=== PATIENT | female | born 1975 | race Caucasian/White ===

== ENCOUNTER 2017-10-28 03:31 | Inpatient (IN) ==
[2017-10-28] MEDS ORDERED: CEFEPIME 2,000 MG in SODIUM CHLORIDE 0.9% 100 ML IV STA (04:52)
[2017-10-28] MEDS ORDERED: SODIUM CHLORIDE 0.9% 1,000 ML IV STA (04:54)
[2017-10-28] MEDS ORDERED: SODIUM CHLORIDE 0.9% 2,000 ML IV STA (04:54)
[2017-10-28] MEDS ORDERED: AZITHROMYCIN INJ 500 MG in SODIUM CHLORIDE 0.9% 250 ML IV STA (04:58)
[2017-10-28] MEDS ORDERED: VANCOMYCIN (NICU) 1,000 MG in SYRINGE 1 EACH IV SCH (05:00)
[2017-10-28 05:01] LABS: Basophils % 0.2 % (0.0-0.8); Hemoglobin 14.3 GM/DL (12.0-16.0); Immature Granulocytes % 0.5 %; Immature Granulocytes Absolute 0.03 #; Lymphocytes # 0.3 10*3/uL (1.4-4.0); Lymphocytes % 4.9 % (21.3-54.2); Mean Corpuscular HGB Conc 34.9 GM/DL (32-36); Mean Corpuscular Hemoglobin 32 PG (27-34); Mean Corpuscular Volume 91.7 FL (87-102); Mean Platelet Volume 9.9 FL (9.6-12.0); Monocytes # 0.1 10*3/uL (0.11-0.8); Monocytes % 1.8 % (1.7-12.7); Neutrophils # 5.6 10*3/uL (1.4-7.4); Neutrophils % 92.6 % (38.7-73.9); Platelet Count 124 T/CUMM (130-400); Red Blood Count 4.47 MC/CUMM (3.8-5.5); Red Cell Distribution Width 12.8 % (9.3-17.3); White Blood Count 6.1 T/CUMM (4-12)
[2017-10-28 05:03] LABS: VBG Base Excess -1.6 MEQ/L (0-4); VBG HCO3 23.1 MEQ/L (24-28); VBG Oxygen Saturation 99.6 %; VBG PCO2 34.2 MMHG (41-51); VBG PH 7.419
[2017-10-28 05:28] LABS: Bilirubin,Total 0.6 MG/DL (0.2-1.0); Calcium 7.8 MG/DL (8.5-10.1); Osmolality,Calculated 268.2 MOS/KG (273-304); Potassium 3.2 MMOL/L (3.5-5.1); Total Protein 6.3 G/DL (6.4-8.3)
[2017-10-28] MEDS ORDERED: PIPERACILLIN/TAZOBACTAM 3,375 MG in SODIUM CHLORIDE 0.9% 100 ML IV STA (05:36)
[2017-10-28] MEDS ORDERED: LEVOFLOXACIN INJ 750 MG in PREMIX 1 EACH IV STA (05:36)
[2017-10-28] MEDS ORDERED: HYDROmorphone 2 MG/1 ML VIAL IV STA (05:53)
[2017-10-28 06:31] LABS: Band Neutrophils 9 % (0-10); Lymphocytes 3 % (20-55); Segmented Neutrophils 87 % (50-85); Total Cells Counted 100
[2017-10-28 06:32] LABS: Hypochromasia 1+; Microcytosis 1+; Platelet Estimate Adequate; Tear Drop Cells Slight
[2017-10-28] MEDS ORDERED: SODIUM CHLORIDE 0.9% 100 ML IV ONE (06:50)
[2017-10-28] MEDS ORDERED: HYDROmorphone 2 MG/1 ML VIAL ONE (06:50)
[2017-10-28] MEDS ORDERED: LEVOFLOXACIN INJ 150 ML IV ONE (06:50)
[2017-10-28] MEDS ORDERED: PIPERACILLIN/TAZOBACTAM 3,375 MG VIAL IV ONE (06:50)
[2017-10-28 07:36] LABS: ABG Base Excess 0.4 MMOL/L (-2.5-2.5); ABG HCO3 24.6 MMOL/L (20-26); ABG Oxygen Saturation 90.5 % (95-100); ABG PCO2 36.5 MM HG (35-48); ABG PH 7.432 (7.35-7.45); ABG PO2 54.7 MM HG (80-95); ABG TCO2 21.1 MMOL/L (23-27)
[2017-10-28] MEDS ORDERED: ALBUTEROL/IPRATROPIUM 3 ML NEB RESP TX PRN (08:51)
[2017-10-28] MEDS ORDERED: PANTOPRAZOLE 40 MG VIAL IV SCH (08:51)
[2017-10-28] MEDS ORDERED: SODIUM CHLORIDE 0.9% 1,000 ML IV SCH (08:51)
[2017-10-28] MEDS ORDERED: SODIUM CHLORIDE 0.9% IV SCH (09:30)
[2017-10-28] MEDS ORDERED: VANCOMYCIN IV SCH (09:30)
[2017-10-28] MEDS: BUDESONIDE 0.5 MG/2 ML NEB RESP TX SCH ×2 (09:48→18:08)
[2017-10-28] MEDS: ALBUTEROL/IPRATROPIUM 3 ML NEB RESP TX SCH ×3 (09:48→18:09)
[2017-10-28] MEDS: DEXTROSE 5% NACL 0.9% 1,000 ML IV SCH ×2 (09:50→19:56)
[2017-10-28] MEDS: MORPHINE 2 MG/1 ML SYRINGE IV PRN (10:39)
[2017-10-28] MEDS: ENOXAPARIN 40 MG/0.4 ML SYRINGE SUBCUT SCH (10:39)
[2017-10-28] MEDS ORDERED: ACETAMINOPHEN 500 MG TABLET PO PRN (11:16)
[2017-10-28] MEDS ORDERED: NAPROXEN 500 MG TABLET PO PRN (11:17)
[2017-10-28] MEDS ORDERED: SUCCINYLCHOLINE 200 MG/10 ML VIAL ONE (11:48)
[2017-10-28] MEDS ORDERED: PROPOFOL 1,000 MG/100 ML BOTTLE IV ONE (11:49)
[2017-10-28] MEDS ORDERED: MIDAZOLAM 2 MG/2 ML VIAL ONE (12:13)
[2017-10-28] MEDS ORDERED: VECURONIUM 10 MG VIAL IV ONE (12:13)
[2017-10-28] MEDS: PROPOFOL 1,000 MG/100 ML BOTTLE IV SCH ×4 (12:15→22:02)
[2017-10-28] MEDS ORDERED: VECURONIUM 10 MG VIAL IV PRN (12:17)
[2017-10-28] MEDS ORDERED: MIDAZOLAM 2 MG/2 ML VIAL IV ONE (12:20)
[2017-10-28 12:44] LABS: ABG Base Excess -2.3 MMOL/L (-2.5-2.5); ABG HCO3 25.1 MMOL/L (20-26); ABG Oxygen Saturation 84.4 % (95-100); ABG PCO2 53.8 MM HG (35-48); ABG PH 7.287 (7.35-7.45); ABG PO2 47.8 MM HG (80-95); ABG TCO2 26.8 MMOL/L (23-27)
[2017-10-28] MEDS: MIDAZOLAM 100 MG in SODIUM CHLORIDE 0.9% 80 ML IV SCH (13:26)
[2017-10-28] MEDS: VANCOMYCIN INJ 1,500 MG in SODIUM CHLORIDE 0.9% 500 ML IV SCH (13:28)
[2017-10-28] MEDS ORDERED: ACETAMINOPHEN 650 MG SUPP RECTAL PRN (13:56)
[2017-10-28] MEDS: AZITHROMYCIN INJ 500 MG in SODIUM CHLORIDE 0.9% 250 ML IV SCH (15:30)
[2017-10-28 15:58] LABS: ABG Base Excess -1.9 MMOL/L (-2.5-2.5); ABG HCO3 22.9 MMOL/L (20-26); ABG Oxygen Saturation 93.5 % (95-100); ABG PCO2 39.3 MM HG (35-48); ABG PH 7.383 (7.35-7.45); ABG PO2 62.3 MM HG (80-95); ABG TCO2 24.1 MMOL/L (23-27)
[2017-10-28] MEDS: PIPERACILLIN/TAZOBACTAM 3,375 MG in SODIUM CHLORIDE 0.9% 100 ML IV SCH (17:02)
[2017-10-28 18:03] LABS: Apearance,Urine Slightly Hazy (Clear); Bilirubin,Urine Negative (Negative); Blood, Urine Large mg/dL (Negative); Glucose,Urine (UA) Negative (Negative); Ketones,Urine Negative (Negative); Nitrite,Urine Negative (Negative); Protein,Urine 100 MG/DL; RBC,Urine 12 /HPF (0-4); Squamous Epithelial Cell,Urine Occasional /HPF (0-10); Urine Color Yellow (Yellow); Urine Specific Gravity 1.032 (1.001-1.035); Urine Urobilinogen < 2.0 EU/DL (0.2-1.0); WBC,Urine 3 /HPF (0-6)
[2017-10-29] MEDS: VANCOMYCIN INJ 1,500 MG in SODIUM CHLORIDE 0.9% 500 ML IV SCH ×2 (00:16→11:52)
[2017-10-29] MEDS: PIPERACILLIN/TAZOBACTAM 3,375 MG in SODIUM CHLORIDE 0.9% 100 ML IV SCH ×3 (00:19→15:35)
[2017-10-29] MEDS: PROPOFOL 1,000 MG/100 ML BOTTLE IV SCH ×3 (00:42→11:53)
[2017-10-29] MEDS: ALBUTEROL/IPRATROPIUM 3 ML NEB RESP TX SCH ×4 (02:20→20:13)
[2017-10-29] MEDS ORDERED: fentaNYL 100 MCG/2 ML VIAL IV ONE ×3 (02:54→03:03)
[2017-10-29] MEDS ORDERED: fentaNYL 100 MCG/2 ML VIAL ONE (02:55)
[2017-10-29] MEDS ORDERED: SODIUM CHLORIDE 0.9% 500 ML IV ONE (02:57)
[2017-10-29] MEDS ORDERED: VECURONIUM 10 MG VIAL IV ONE ×2 (03:03→05:41)
[2017-10-29] MEDS ORDERED: IPRATROPIUM 500 MCG/2.5 ML NEB RESP TX ONE ×4 (03:12→05:42)
[2017-10-29] MEDS: PHENYLEPHRINE DRIP 40 MG/250 ML PREMIX IV SCH (03:22)
[2017-10-29] MEDS: fentaNYL INJ 1,250 MCG in SODIUM CHLORIDE 0.9% 225 ML IV SCH (03:34)
[2017-10-29 04:00] LABS: Allen Test Positive; Pt O2 Delivery Device Ventilator
[2017-10-29 04:01] LABS: ABG Base Excess -3.8 MMOL/L (-2.5-2.5); ABG Oxygen Saturation 87.8 % (95-100); ABG PCO2 50.3 MM HG (35-48); ABG PH 7.278 (7.35-7.45); ABG PO2 57.5 MM HG (80-95); ABG TCO2 21.1 MMOL/L (23-27)
[2017-10-29] MEDS: methylPREDNISolone SOD SUC 40 MG/1 ML VIAL IV SCH ×3 (05:00→20:52)
[2017-10-29] MEDS: DEXTROSE 5% NACL 0.9% 1,000 ML IV SCH ×2 (06:45→15:32)
[2017-10-29] MEDS: CISATRACURIUM 200 MG in SODIUM CHLORIDE 0.9% 100 ML IV SCH (06:46)
[2017-10-29 07:50] LABS: ABG Base Excess -5.4 MMOL/L (-2.5-2.5); ABG HCO3 19.9 MMOL/L (20-26); ABG Oxygen Saturation 91.5 % (95-100); ABG PCO2 47.9 MM HG (35-48); ABG PH 7.269 (7.35-7.45); ABG PO2 64.9 MM HG (80-95); ABG TCO2 19.5 MMOL/L (23-27); Pt O2 Delivery Device Ventilator
[2017-10-29] MEDS: BUDESONIDE 0.5 MG/2 ML NEB RESP TX SCH ×2 (08:09→20:13)
[2017-10-29 08:24] LABS: Calcium 6.9 MG/DL (8.5-10.1); Osmolality,Calculated 287.8 MOS/KG (273-304); Potassium 3.3 MMOL/L (3.5-5.1)
[2017-10-29] MEDS: PANTOPRAZOLE 40 MG VIAL IV SCH (08:51)
[2017-10-29] MEDS: ENOXAPARIN 40 MG/0.4 ML SYRINGE SUBCUT SCH (08:51)
[2017-10-29] MEDS ORDERED: PIPERACILLIN/TAZOBACTAM 3,375 MG in SODIUM CHLORIDE 0.9% 100 ML IV SCH (10:30)
[2017-10-29] MEDS: AZITHROMYCIN INJ 500 MG in SODIUM CHLORIDE 0.9% 250 ML IV SCH (13:32)
[2017-10-29] MEDS: POTASSIUM CHLORIDE RIDER 10 MEQ in PREMIX 1 EACH IV PRN ×2 (13:32→15:34)
[2017-10-29] MEDS: MIDAZOLAM 100 MG in SODIUM CHLORIDE 0.9% 80 ML IV SCH (14:28)
[2017-10-30] MEDS: PIPERACILLIN/TAZOBACTAM 3,375 MG in SODIUM CHLORIDE 0.9% 100 ML IV SCH ×2 (00:34→09:36)
[2017-10-30] MEDS: VANCOMYCIN INJ 1,500 MG in SODIUM CHLORIDE 0.9% 500 ML IV SCH ×3 (00:34→22:11)
[2017-10-30] MEDS: MIDAZOLAM 100 MG in SODIUM CHLORIDE 0.9% 80 ML IV SCH ×4 (01:01→22:16)
[2017-10-30] MEDS: ALBUTEROL/IPRATROPIUM 3 ML NEB RESP TX SCH ×4 (01:57→19:52)
[2017-10-30] MEDS: fentaNYL INJ 1,250 MCG in SODIUM CHLORIDE 0.9% 225 ML IV SCH ×3 (02:57→22:15)
[2017-10-30] MEDS: DEXTROSE 5% NACL 0.9% 1,000 ML IV SCH (03:10)
[2017-10-30] MEDS: PHENYLEPHRINE DRIP 40 MG/250 ML PREMIX IV SCH (04:01)
[2017-10-30 04:15] LABS: Allen Test Positive; Pt O2 Delivery Device Ventilator
[2017-10-30 04:19] LABS: ABG Base Excess -6.4 MMOL/L (-2.5-2.5); ABG HCO3 19.2 MMOL/L (20-26); ABG Oxygen Saturation 96.2 % (95-100); ABG PCO2 42.4 MM HG (35-48); ABG PH 7.284 (7.35-7.45); ABG PO2 80.6 MM HG (80-95); ABG TCO2 18.1 MMOL/L (23-27)
[2017-10-30] MEDS: methylPREDNISolone SOD SUC 40 MG/1 ML VIAL IV SCH ×3 (04:51→19:54)
[2017-10-30] MEDS: CISATRACURIUM 200 MG in SODIUM CHLORIDE 0.9% 100 ML IV SCH ×2 (06:25→11:40)
[2017-10-30] MEDS: POTASSIUM CHLORIDE RIDER 10 MEQ in PREMIX 1 EACH IV PRN ×5 (06:32→11:41)
[2017-10-30 06:33] LABS: Magnesium 2.3 MG/DL (1.8-2.4); Prealbumin 5.2 MG/DL (20-40)
[2017-10-30 07:13] LABS: HIV Antigen/Antibody Result Nonreactive (Nonreactive)
[2017-10-30 07:55] LABS: Basophils % 0.3 % (0.0-0.8); Hematocrit 36.3 VOL% (35.7-47.0); Hemoglobin 12.3 GM/DL (12.0-16.0); Immature Granulocytes % 0.9 %; Immature Granulocytes Absolute 0.03 #; Lymphocytes # 0.7 10*3/uL (1.4-4.0); Lymphocytes % 21.6 % (21.3-54.2); Mean Corpuscular HGB Conc 33.9 GM/DL (32-36); Mean Corpuscular Hemoglobin 32 PG (27-34); Mean Corpuscular Volume 93.8 FL (87-102); Mean Platelet Volume 10.7 FL (9.6-12.0); Monocytes # 0.1 10*3/uL (0.11-0.8); Monocytes % 2.8 % (1.7-12.7); Neutrophils # 2.4 10*3/uL (1.4-7.4); Neutrophils % 74.4 % (38.7-73.9); Platelet Count 115 T/CUMM (130-400); Red Blood Count 3.87 MC/CUMM (3.8-5.5); Red Cell Distribution Width 14.3 % (9.3-17.3); White Blood Count 3.2 T/CUMM (4-12)
[2017-10-30] MEDS: BUDESONIDE 0.5 MG/2 ML NEB RESP TX SCH ×2 (07:59→19:52)
[2017-10-30 08:49] LABS: Band Neutrophils 6 % (0-10); Hypochromasia 1+; Lymphocytes 14 % (20-55); Segmented Neutrophils 77 % (50-85); Total Cells Counted 100
[2017-10-30 08:50] LABS: Platelet Estimate Adequate
[2017-10-30] MEDS: ENOXAPARIN 40 MG/0.4 ML SYRINGE SUBCUT SCH (09:37)
[2017-10-30] MEDS: PANTOPRAZOLE 40 MG VIAL IV SCH (09:37)
[2017-10-30] MEDS: MEROPENEM 500 MG in SYRINGE 1 EACH IV SCH ×2 (11:47→19:55)
[2017-10-30] MEDS: PROPOFOL 1,000 MG/100 ML BOTTLE IV SCH (12:06)
[2017-10-30] MEDS: POTASSIUM CHLORIDE INJ 30 MEQ in DEXTROSE 5% NACL 0.45% 1,000 ML IV SCH ×2 (12:50→22:10)
[2017-10-30] MEDS: SODIUM PHOSPHATE INJ 15 MMOL in SODIUM CHLORIDE 0.9% 250 ML IV PRN (12:50)
[2017-10-30] MEDS: OSELTAMIVIR 6 MG/ML 60 ML/BOTTLE NG SCH ×2 (13:14→20:01)
[2017-10-30] MEDS: AZITHROMYCIN INJ 500 MG in SODIUM CHLORIDE 0.9% 250 ML IV SCH (14:28)
[2017-10-30] MEDS ORDERED: GLUCAGON 1 MG VIAL IM PRN (15:05)
[2017-10-30] MEDS ORDERED: DEXTROSE 50% 25 GM/50 ML VIAL IV PRN (15:05)
[2017-10-30 15:16] LABS: PT Patient Result 10.1 SECS; Partial Thromboplastin Time 36.1 SECS (0-40)
[2017-10-30 15:52] LABS: Folate 11.7 NG/ML (5.4-24.0); Vitamin B12 > 2000 PG/ML (211-911)
[2017-10-30] MEDS: INSULIN REGULAR 100 UNIT/ML SUBCUT SCH (17:09)
[2017-10-31] MEDS: INSULIN REGULAR 100 UNIT/ML SUBCUT SCH ×4 (00:24→18:22)
[2017-10-31] MEDS: ALBUTEROL/IPRATROPIUM 3 ML NEB RESP TX SCH ×5 (02:04→23:57)
[2017-10-31 03:19] LABS: Basophils % 0.2 % (0.0-0.8); Hematocrit 34.5 VOL% (35.7-47.0); Hemoglobin 11.4 GM/DL (12.0-16.0); Immature Granulocytes % 0.8 %; Immature Granulocytes Absolute 0.04 #; Lymphocytes # 0.8 10*3/uL (1.4-4.0); Lymphocytes % 17.2 % (21.3-54.2); Mean Corpuscular Hemoglobin 32 PG (27-34); Mean Corpuscular Volume 95.3 FL (87-102); Mean Platelet Volume 10.5 FL (9.6-12.0); Monocytes # 0.3 10*3/uL (0.11-0.8); Monocytes % 5.4 % (1.7-12.7); Neutrophils # 3.7 10*3/uL (1.4-7.4); Neutrophils % 76.4 % (38.7-73.9); Platelet Count 110 T/CUMM (130-400); Red Blood Count 3.62 MC/CUMM (3.8-5.5); Red Cell Distribution Width 14.7 % (9.3-17.3); White Blood Count 4.8 T/CUMM (4-12)
[2017-10-31 03:20] LABS: ABG Base Excess -3.7 MMOL/L (-2.5-2.5); ABG HCO3 21.8 MMOL/L (20-26); ABG Oxygen Saturation 95.1 % (95-100); ABG PH 7.343 (7.35-7.45); ABG PO2 71.1 MM HG (80-95)
[2017-10-31 03:45] LABS: Calcium 6.9 MG/DL (8.5-10.1); Osmolality,Calculated 302.9 MOS/KG (273-304); Potassium 3.4 MMOL/L (3.5-5.1)
[2017-10-31 03:52] LABS: Magnesium 2.2 MG/DL (1.8-2.4)
[2017-10-31 04:26] LABS: Band Neutrophils 4 % (0-10); Hypochromasia 2+; Lymphocytes 14 % (20-55); Metamyelocytes 1 %; Platelet Estimate Decreased; Segmented Neutrophils 78 % (50-85); Target Cells 2+; Total Cells Counted 100
[2017-10-31] MEDS: MEROPENEM 500 MG in SYRINGE 1 EACH IV SCH ×3 (04:59→21:47)
[2017-10-31] MEDS: methylPREDNISolone SOD SUC 40 MG/1 ML VIAL IV SCH ×3 (04:59→21:48)
[2017-10-31] MEDS: PHENYLEPHRINE DRIP 40 MG/250 ML PREMIX IV SCH (05:18)
[2017-10-31] MEDS: CISATRACURIUM 200 MG in SODIUM CHLORIDE 0.9% 100 ML IV SCH ×2 (06:55→23:01)
[2017-10-31] MEDS: BUDESONIDE 0.5 MG/2 ML NEB RESP TX SCH ×2 (07:50→19:21)
[2017-10-31] MEDS: POTASSIUM CHLORIDE INJ 30 MEQ in DEXTROSE 5% NACL 0.45% 1,000 ML IV SCH (08:40)
[2017-10-31] MEDS: PANTOPRAZOLE 40 MG VIAL IV SCH (08:40)
[2017-10-31] MEDS: ENOXAPARIN 40 MG/0.4 ML SYRINGE SUBCUT SCH (08:41)
[2017-10-31] MEDS: OSELTAMIVIR 6 MG/ML 60 ML/BOTTLE NG SCH ×2 (08:41→21:49)
[2017-10-31] MEDS: POTASSIUM CHLORIDE RIDER 10 MEQ in PREMIX 1 EACH IV PRN ×3 (09:01→11:14)
[2017-10-31] MEDS: SODIUM PHOSPHATE INJ 15 MMOL in SODIUM CHLORIDE 0.9% 250 ML IV PRN ×2 (09:02→16:33)
[2017-10-31] MEDS: PROPOFOL 1,000 MG/100 ML BOTTLE IV SCH (12:05)
[2017-10-31] MEDS: VANCOMYCIN INJ 1,500 MG in SODIUM CHLORIDE 0.9% 500 ML IV SCH (12:17)
[2017-10-31] MEDS: AZITHROMYCIN INJ 500 MG in SODIUM CHLORIDE 0.9% 250 ML IV SCH (13:54)
[2017-10-31] MEDS: MIDAZOLAM 100 MG in SODIUM CHLORIDE 0.9% 80 ML IV SCH ×2 (15:26→15:46)
[2017-10-31] MEDS: fentaNYL INJ 1,250 MCG in SODIUM CHLORIDE 0.9% 225 ML IV SCH (15:45)
[2017-10-31] MEDS: POTASSIUM CHLORIDE INJ 40 MEQ in DEXTROSE 5% NACL 0.22% 1,000 ML IV SCH (19:30)
[2017-10-31] MEDS ORDERED: hydrALAZINE 20 MG/1 ML VIAL IV ONE (20:53)
[2017-10-31] MEDS ORDERED: hydrALAZINE 20 MG/1 ML VIAL ONE (20:55)
[2017-10-31] MEDS: ZINC OXIDE PASTE 113 GM TUBE TOP SCH (21:49)
[2017-11-01] MEDS ORDERED: LABETALOL 20 MG/4 ML SYRINGE IV ONE (00:46)
[2017-11-01] MEDS: VANCOMYCIN INJ 1,500 MG in SODIUM CHLORIDE 0.9% 500 ML IV SCH ×3 (00:50→23:50)
[2017-11-01] MEDS: INSULIN REGULAR 100 UNIT/ML SUBCUT SCH ×4 (00:57→18:38)
[2017-11-01 03:27] LABS: Allen Test Positive; Pt O2 Delivery Device Ventilator
[2017-11-01 03:29] LABS: ABG Base Excess -3.5 MMOL/L (-2.5-2.5); ABG HCO3 21.5 MMOL/L (20-26); ABG Oxygen Saturation 95.6 % (95-100); ABG PCO2 49.7 MM HG (35-48); ABG PH 7.286 (7.35-7.45); ABG PO2 79.9 MM HG (80-95); ABG TCO2 21.4 MMOL/L (23-27)
[2017-11-01] MEDS: fentaNYL INJ 1,250 MCG in SODIUM CHLORIDE 0.9% 225 ML IV SCH ×3 (03:31→18:11)
[2017-11-01 04:23] LABS: Basophils % 0.1 % (0.0-0.8); Hematocrit 35.9 VOL% (35.7-47.0); Hemoglobin 11.5 GM/DL (12.0-16.0); Immature Granulocytes % 1.5 %; Immature Granulocytes Absolute 0.21 #; Lymphocytes # 0.6 10*3/uL (1.4-4.0); Lymphocytes % 4.5 % (21.3-54.2); Mean Corpuscular Hemoglobin 31 PG (27-34); Mean Corpuscular Volume 97.3 FL (87-102); Mean Platelet Volume 10.6 FL (9.6-12.0); Monocytes # 0.4 10*3/uL (0.11-0.8); Neutrophils # 12.8 10*3/uL (1.4-7.4); Neutrophils % 90.9 % (38.7-73.9); Platelet Count 105 T/CUMM (130-400); Red Blood Count 3.69 MC/CUMM (3.8-5.5); Red Cell Distribution Width 15.3 % (9.3-17.3); White Blood Count 14.1 T/CUMM (4-12)
[2017-11-01 04:58] LABS: Magnesium 2.5 MG/DL (1.8-2.4)
[2017-11-01 05:02] LABS: Calcium 7.1 MG/DL (8.5-10.1); Osmolality,Calculated 305.9 MOS/KG (273-304); Potassium 4.4 MMOL/L (3.5-5.1)
[2017-11-01 05:04] LABS: Lymphocytes 3 % (20-55); Nucleated Red Blood Cells 1 (0-5); Promyelocytes 1 %; Segmented Neutrophils 96 % (50-85); Total Cells Counted 100
[2017-11-01 05:06] LABS: Platelet Estimate Decreased
[2017-11-01 05:09] LABS: Hypochromasia Slight
[2017-11-01] MEDS: PHENYLEPHRINE DRIP 40 MG/250 ML PREMIX IV SCH (05:37)
[2017-11-01] MEDS: MEROPENEM 500 MG in SYRINGE 1 EACH IV SCH ×2 (06:05→12:10)
[2017-11-01] MEDS: methylPREDNISolone SOD SUC 40 MG/1 ML VIAL IV SCH ×3 (06:07→20:42)
[2017-11-01] MEDS: CISATRACURIUM 200 MG in SODIUM CHLORIDE 0.9% 100 ML IV SCH ×2 (06:26→22:38)
[2017-11-01] MEDS: POTASSIUM CHLORIDE INJ 40 MEQ in DEXTROSE 5% NACL 0.22% 1,000 ML IV SCH (08:08)
[2017-11-01] MEDS: BUDESONIDE 0.5 MG/2 ML NEB RESP TX SCH ×2 (08:42→20:23)
[2017-11-01] MEDS: ALBUTEROL/IPRATROPIUM 3 ML NEB RESP TX SCH ×3 (08:42→20:23)
[2017-11-01] MEDS: MIDAZOLAM 100 MG in SODIUM CHLORIDE 0.9% 80 ML IV SCH ×2 (08:43→19:56)
[2017-11-01] MEDS: OSELTAMIVIR 6 MG/ML 60 ML/BOTTLE NG SCH ×2 (09:43→20:45)
[2017-11-01] MEDS: PANTOPRAZOLE 40 MG VIAL IV SCH (09:43)
[2017-11-01] MEDS: ZINC OXIDE PASTE 113 GM TUBE TOP SCH ×2 (09:44→20:44)
[2017-11-01] MEDS: ENOXAPARIN 40 MG/0.4 ML SYRINGE SUBCUT SCH (11:38)
[2017-11-01] MEDS ORDERED: DEXTROSE 5% 1,000 ML IV SCH (12:30)
[2017-11-01] MEDS ORDERED: fentaNYL INJ 1,250 MCG in SODIUM CHLORIDE 0.9% 225 ML IV SCH (12:44)
[2017-11-01] MEDS: cloNIDine 0.2 MG/24 HR PATCH TRANSDERM SCH (12:54)
[2017-11-01] MEDS: PROPOFOL 1,000 MG/100 ML BOTTLE IV SCH (12:58)
[2017-11-01] MEDS: POTASSIUM PHOS/SOD PHOS POWDER 250 MG PACK NG SCH ×3 (14:52→20:43)
[2017-11-01] MEDS: AZITHROMYCIN INJ 500 MG in SODIUM CHLORIDE 0.9% 250 ML IV SCH (14:53)
[2017-11-01] MEDS: cefTRIAXone 2,000 MG in SYRINGE 1 EACH IV SCH (16:18)
[2017-11-01] MEDS: MORPHINE 2 MG/1 ML SYRINGE IV PRN (18:38)
[2017-11-02] MEDS: INSULIN REGULAR 100 UNIT/ML SUBCUT SCH ×4 (00:14→18:41)
[2017-11-02] MEDS: ALBUTEROL/IPRATROPIUM 3 ML NEB RESP TX SCH ×4 (01:04→21:20)
[2017-11-02] MEDS: fentaNYL INJ 1,250 MCG in SODIUM CHLORIDE 0.9% 225 ML IV SCH ×4 (02:16→23:01)
[2017-11-02] MEDS: PHENYLEPHRINE DRIP 40 MG/250 ML PREMIX IV SCH (02:46)
[2017-11-02 03:45] LABS: Allen Test Positive; Pt O2 Delivery Device Ventilator
[2017-11-02 03:46] LABS: ABG Base Excess 2.1 MMOL/L (-2.5-2.5); ABG HCO3 28.1 MMOL/L (20-26); ABG Oxygen Saturation 94.9 % (95-100); ABG PCO2 50.1 MM HG (35-48); ABG PH 7.367 (7.35-7.45); ABG PO2 72.3 MM HG (80-95); ABG TCO2 29.7 MMOL/L (23-27)
[2017-11-02] MEDS: methylPREDNISolone SOD SUC 40 MG/1 ML VIAL IV SCH ×3 (04:33→20:19)
[2017-11-02] MEDS: MIDAZOLAM 100 MG in SODIUM CHLORIDE 0.9% 80 ML IV SCH ×2 (04:44→14:03)
[2017-11-02 05:01] LABS: Basophils % 0.1 % (0.0-0.8); Hematocrit 31.7 VOL% (35.7-47.0); Hemoglobin 10.2 GM/DL (12.0-16.0); Immature Granulocytes % 1.7 %; Immature Granulocytes Absolute 0.18 #; Lymphocytes # 0.5 10*3/uL (1.4-4.0); Lymphocytes % 4.5 % (21.3-54.2); Mean Corpuscular HGB Conc 32.2 GM/DL (32-36); Mean Corpuscular Hemoglobin 31 PG (27-34); Mean Corpuscular Volume 97.5 FL (87-102); Mean Platelet Volume 11.7 FL (9.6-12.0); Monocytes # 0.4 10*3/uL (0.11-0.8); Neutrophils # 9.3 10*3/uL (1.4-7.4); Neutrophils % 89.7 % (38.7-73.9); Platelet Count 80 T/CUMM (130-400); Red Blood Count 3.25 MC/CUMM (3.8-5.5); Red Cell Distribution Width 15.4 % (9.3-17.3); White Blood Count 10.4 T/CUMM (4-12)
[2017-11-02] MEDS: CISATRACURIUM 200 MG in SODIUM CHLORIDE 0.9% 100 ML IV SCH ×2 (05:09→15:28)
[2017-11-02 05:15] LABS: INR 1.3; PT Patient Result 13.1 SECS; Partial Thromboplastin Time 30.6 SECS (0-40)
[2017-11-02 05:25] LABS: Calcium 7.2 MG/DL (8.5-10.1); Osmolality,Calculated 301.1 MOS/KG (273-304); Potassium 4.1 MMOL/L (3.5-5.1); Segmented Neutrophils 80 % (50-85); Total Cells Counted 100
[2017-11-02 05:26] LABS: Band Neutrophils 18 % (0-10); Lymphocytes 1 % (20-55)
[2017-11-02 05:29] LABS: Magnesium 2.6 MG/DL (1.8-2.4); Prealbumin 17.3 MG/DL (20-40)
[2017-11-02] MEDS ORDERED: FUROSEMIDE 40 MG/4 ML VIAL IV ONE ×2 (05:59→06:02)
[2017-11-02] MEDS ORDERED: FUROSEMIDE 100 MG/10 ML VIAL ONE (06:03)
[2017-11-02 06:42] LABS: ABG Base Excess 2.9 MMOL/L (-2.5-2.5); ABG HCO3 26.8 MMOL/L (20-26); ABG Oxygen Saturation 88.7 % (95-100); ABG PCO2 53.8 MM HG (35-48); ABG PH 7.351 (7.35-7.45); ABG PO2 55.6 MM HG (80-95); ABG TCO2 26.5 MMOL/L (23-27)
[2017-11-02] MEDS ORDERED: LIDOCAINE 1% 20 ML VIAL MISC INJ ONE (08:45)
[2017-11-02] MEDS: BUDESONIDE 0.5 MG/2 ML NEB RESP TX SCH ×2 (08:45→21:20)
[2017-11-02 10:57] LABS: Ammonia 44 UMOL/L (11-32)
[2017-11-02 11:20] LABS: Alanine Aminotransferase 39 U/L (13-56); Albumin 2.1 G/DL (3.4-5.0); Alkaline Phosphatase 136 U/L (45-117); Aspartate Amino Transferase 29 U/L (0-37); Bilirubin,Indirect 0.2 MG/DL (0.0-1.0); Bilirubin,Total < 0.39 MG/DL (0.2-1.0); Total Protein 5.2 G/DL (6.4-8.3)
[2017-11-02] MEDS: PANTOPRAZOLE 40 MG VIAL IV SCH (11:36)
[2017-11-02] MEDS: ENOXAPARIN 40 MG/0.4 ML SYRINGE SUBCUT SCH (11:36)
[2017-11-02] MEDS: POTASSIUM PHOS/SOD PHOS POWDER 250 MG PACK NG SCH ×3 (11:37→20:19)
[2017-11-02] MEDS: ZINC OXIDE PASTE 113 GM TUBE TOP SCH ×2 (11:37→20:19)
[2017-11-02] MEDS: VANCOMYCIN INJ 1,500 MG in SODIUM CHLORIDE 0.9% 500 ML IV SCH (11:37)
[2017-11-02] MEDS: OSELTAMIVIR 6 MG/ML 60 ML/BOTTLE NG SCH ×2 (11:38→20:19)
[2017-11-02] MEDS: PROPOFOL 1,000 MG/100 ML BOTTLE IV SCH (13:08)
[2017-11-02] MEDS: cefTRIAXone 2,000 MG in SYRINGE 1 EACH IV SCH (14:01)
[2017-11-02] MEDS: AZITHROMYCIN INJ 500 MG in SODIUM CHLORIDE 0.9% 250 ML IV SCH (14:01)
[2017-11-03] MEDS: INSULIN REGULAR 100 UNIT/ML SUBCUT SCH ×4 (00:32→17:50)
[2017-11-03] MEDS: MIDAZOLAM 100 MG in SODIUM CHLORIDE 0.9% 80 ML IV SCH ×4 (01:16→20:46)
[2017-11-03] MEDS: ALBUTEROL/IPRATROPIUM 3 ML NEB RESP TX SCH ×4 (01:24→18:39)
[2017-11-03] MEDS: PHENYLEPHRINE DRIP 40 MG/250 ML PREMIX IV SCH (02:48)
[2017-11-03 03:29] LABS: ABG HCO3 29.9 MMOL/L (20-26); ABG PCO2 49.4 MM HG (35-48); ABG PH 7.414 (7.35-7.45); ABG TCO2 28.6 MMOL/L (23-27); Allen Test Positive; Pt O2 Delivery Device Ventilator
[2017-11-03] MEDS: methylPREDNISolone SOD SUC 40 MG/1 ML VIAL IV SCH ×3 (03:39→20:45)
[2017-11-03 03:54] LABS: Basophils % 0.1 % (0.0-0.8); Hematocrit 30.4 VOL% (35.7-47.0); Hemoglobin 9.8 GM/DL (12.0-16.0); Immature Granulocytes % 1.2 %; Immature Granulocytes Absolute 0.12 #; Lymphocytes # 0.3 10*3/uL (1.4-4.0); Lymphocytes % 3.1 % (21.3-54.2); Mean Corpuscular HGB Conc 32.2 GM/DL (32-36); Mean Corpuscular Hemoglobin 32 PG (27-34); Mean Corpuscular Volume 97.7 FL (87-102); Mean Platelet Volume 11.6 FL (9.6-12.0); Monocytes # 0.4 10*3/uL (0.11-0.8); Neutrophils # 9.5 10*3/uL (1.4-7.4); Neutrophils % 91.6 % (38.7-73.9); Platelet Count 101 T/CUMM (130-400); Red Blood Count 3.11 MC/CUMM (3.8-5.5); Red Cell Distribution Width 14.9 % (9.3-17.3); White Blood Count 10.4 T/CUMM (4-12)
[2017-11-03 04:30] LABS: Magnesium 2.6 MG/DL (1.8-2.4)
[2017-11-03 05:11] LABS: Band Neutrophils 1 % (0-10); Lymphocytes 1 % (20-55); Platelet Estimate Decreased; Segmented Neutrophils 96 % (50-85); Total Cells Counted 100
[2017-11-03 05:12] LABS: Giant Platelets Few; Hypochromasia 1+; Ovalocytes Slight
[2017-11-03] MEDS: fentaNYL INJ 1,250 MCG in SODIUM CHLORIDE 0.9% 225 ML IV SCH ×4 (05:29→19:25)
[2017-11-03] MEDS: CISATRACURIUM 200 MG in SODIUM CHLORIDE 0.9% 100 ML IV SCH ×3 (06:15→23:07)
[2017-11-03] MEDS: BUDESONIDE 0.5 MG/2 ML NEB RESP TX SCH ×2 (07:24→18:39)
[2017-11-03] MEDS: ENOXAPARIN 40 MG/0.4 ML SYRINGE SUBCUT SCH (09:20)
[2017-11-03] MEDS: PANTOPRAZOLE 40 MG VIAL IV SCH (09:20)
[2017-11-03] MEDS: OSELTAMIVIR 6 MG/ML 60 ML/BOTTLE NG SCH ×2 (09:21→20:46)
[2017-11-03] MEDS: ZINC OXIDE PASTE 113 GM TUBE TOP SCH ×2 (09:21→20:45)
[2017-11-03] MEDS: POTASSIUM PHOS/SOD PHOS POWDER 250 MG PACK NG SCH ×3 (09:34→20:45)
[2017-11-03] MEDS: PROPOFOL 1,000 MG/100 ML BOTTLE IV SCH (12:06)
[2017-11-03] MEDS: cefTRIAXone 2,000 MG in SYRINGE 1 EACH IV SCH (14:44)
[2017-11-03] MEDS: AZITHROMYCIN INJ 500 MG in SODIUM CHLORIDE 0.9% 250 ML IV SCH (14:45)
[2017-11-03] MEDS: LABETALOL 100 MG/20 ML VIAL IV PRN (20:00)
[2017-11-03] MEDS ORDERED: OSELTAMIVIR 75 MG CAPSULE PO ONE (20:34)
[2017-11-04] MEDS ORDERED: fentaNYL INJ 2,500 MCG in SODIUM CHLORIDE 0.9% 500 ML IV SCH
[2017-11-04] MEDS: INSULIN REGULAR 100 UNIT/ML SUBCUT SCH ×4 (00:09→17:28)
[2017-11-04] MEDS: ALBUTEROL/IPRATROPIUM 3 ML NEB RESP TX SCH ×4 (01:16→19:44)
[2017-11-04 02:49] LABS: ABG Base Excess 7.8 MMOL/L (-2.5-2.5); ABG HCO3 33.9 MMOL/L (20-26); ABG Oxygen Saturation 97.8 % (95-100); ABG PCO2 55.8 MM HG (35-48); ABG PH 7.401 (7.35-7.45); ABG PO2 119.8 MM HG (80-95); ABG TCO2 35.6 MMOL/L (23-27); Pt O2 Delivery Device Ventilator
[2017-11-04] MEDS: PHENYLEPHRINE DRIP 40 MG/250 ML PREMIX IV SCH (03:47)
[2017-11-04] MEDS: methylPREDNISolone SOD SUC 40 MG/1 ML VIAL IV SCH ×3 (05:20→21:16)
[2017-11-04 05:49] LABS: Basophils % 0.2 % (0.0-0.8); Hematocrit 30.7 VOL% (35.7-47.0); Hemoglobin 9.7 GM/DL (12.0-16.0); Lymphocytes # 0.3 10*3/uL (1.4-4.0); Lymphocytes % 2.8 % (21.3-54.2); Mean Corpuscular HGB Conc 31.6 GM/DL (32-36); Mean Corpuscular Hemoglobin 32 PG (27-34); Mean Corpuscular Volume 100.3 FL (87-102); Mean Platelet Volume 11.4 FL (9.6-12.0); Monocytes # 0.4 10*3/uL (0.11-0.8); Monocytes % 4.1 % (1.7-12.7); Neutrophils # 9.1 10*3/uL (1.4-7.4); Neutrophils % 91.9 % (38.7-73.9); Platelet Count 117 T/CUMM (130-400); Red Blood Count 3.06 MC/CUMM (3.8-5.5); Red Cell Distribution Width 14.6 % (9.3-17.3)
[2017-11-04 06:29] LABS: Magnesium 2.7 MG/DL (1.8-2.4)
[2017-11-04 06:32] LABS: Band Neutrophils 7 % (0-10); Hypochromasia 1+; Platelet Estimate Decreased; Polychromasia Slight; Segmented Neutrophils 91 % (50-85); Total Cells Counted 100
[2017-11-04] MEDS: fentaNYL INJ 2,500 MCG in SODIUM CHLORIDE 0.9% 450 ML IV SCH ×2 (07:15→18:11)
[2017-11-04] MEDS: BUDESONIDE 0.5 MG/2 ML NEB RESP TX SCH ×2 (07:38→19:44)
[2017-11-04] MEDS ORDERED: FUROSEMIDE 40 MG/4 ML VIAL IV ONE (07:42)
[2017-11-04] MEDS: CISATRACURIUM 200 MG in SODIUM CHLORIDE 0.9% 100 ML IV SCH ×2 (08:43→09:48)
[2017-11-04] MEDS: POTASSIUM PHOS/SOD PHOS POWDER 250 MG PACK NG SCH ×3 (08:44→21:19)
[2017-11-04] MEDS: PANTOPRAZOLE 40 MG VIAL IV SCH (08:44)
[2017-11-04] MEDS: ZINC OXIDE PASTE 113 GM TUBE TOP SCH ×2 (08:44→21:16)
[2017-11-04] MEDS: ENOXAPARIN 40 MG/0.4 ML SYRINGE SUBCUT SCH (08:44)
[2017-11-04] MEDS: PROPOFOL 1,000 MG/100 ML BOTTLE IV SCH (12:10)
[2017-11-04] MEDS: MIDAZOLAM 100 MG in SODIUM CHLORIDE 0.9% 80 ML IV SCH ×2 (12:44→18:11)
[2017-11-04] MEDS: cefTRIAXone 2,000 MG in SYRINGE 1 EACH IV SCH (13:53)
[2017-11-04] MEDS: AZITHROMYCIN INJ 500 MG in SODIUM CHLORIDE 0.9% 250 ML IV SCH (13:54)
[2017-11-05] MEDS: INSULIN REGULAR 100 UNIT/ML SUBCUT SCH ×4 (00:05→17:16)
[2017-11-05] MEDS: ALBUTEROL/IPRATROPIUM 3 ML NEB RESP TX SCH ×4 (00:17→20:16)
[2017-11-05] MEDS: MIDAZOLAM 100 MG in SODIUM CHLORIDE 0.9% 80 ML IV SCH ×3 (02:08→21:41)
[2017-11-05] MEDS: PHENYLEPHRINE DRIP 40 MG/250 ML PREMIX IV SCH (03:12)
[2017-11-05] MEDS: fentaNYL INJ 2,500 MCG in SODIUM CHLORIDE 0.9% 450 ML IV SCH ×4 (03:12→21:42)
[2017-11-05] MEDS: methylPREDNISolone SOD SUC 40 MG/1 ML VIAL IV SCH ×3 (03:59→20:14)
[2017-11-05 04:09] LABS: Calcium 7.9 MG/DL (8.5-10.1); Osmolality,Calculated 306.1 MOS/KG (273-304); Potassium 4.5 MMOL/L (3.5-5.1)
[2017-11-05] MEDS: CISATRACURIUM 200 MG in SODIUM CHLORIDE 0.9% 100 ML IV SCH ×3 (04:38→18:24)
[2017-11-05 04:49] LABS: ABG Base Excess 7.1 MMOL/L (-2.5-2.5); ABG PCO2 51.9 MM HG (35-48); ABG PH 7.412 (7.35-7.45); Allen Test Positive; Pt O2 Delivery Device Ventilator
[2017-11-05] MEDS: LABETALOL 100 MG/20 ML VIAL IV PRN (06:02)
[2017-11-05] MEDS: BUDESONIDE 0.5 MG/2 ML NEB RESP TX SCH ×2 (08:05→20:16)
[2017-11-05] MEDS ORDERED: FUROSEMIDE 40 MG/4 ML VIAL IV ONE (08:20)
[2017-11-05] MEDS: ENOXAPARIN 40 MG/0.4 ML SYRINGE SUBCUT SCH (08:49)
[2017-11-05] MEDS: PANTOPRAZOLE 40 MG VIAL IV SCH (08:49)
[2017-11-05] MEDS: POTASSIUM PHOS/SOD PHOS POWDER 250 MG PACK NG SCH ×3 (08:50→20:14)
[2017-11-05] MEDS: ZINC OXIDE PASTE 113 GM TUBE TOP SCH ×2 (08:50→20:14)
[2017-11-05] MEDS: PROPOFOL 1,000 MG/100 ML BOTTLE IV SCH (11:33)
[2017-11-05] MEDS: AZITHROMYCIN INJ 500 MG in SODIUM CHLORIDE 0.9% 250 ML IV SCH (13:48)
[2017-11-05] MEDS: cefTRIAXone 2,000 MG in SYRINGE 1 EACH IV SCH (13:48)
[2017-11-06] MEDS: INSULIN REGULAR 100 UNIT/ML SUBCUT SCH ×4 (00:49→19:24)
[2017-11-06] MEDS: MIDAZOLAM 100 MG in SODIUM CHLORIDE 0.9% 80 ML IV SCH ×3 (03:03→18:50)
[2017-11-06] MEDS: ALBUTEROL/IPRATROPIUM 3 ML NEB RESP TX SCH ×4 (04:10→21:07)
[2017-11-06] MEDS: PHENYLEPHRINE DRIP 40 MG/250 ML PREMIX IV SCH (04:31)
[2017-11-06] MEDS: methylPREDNISolone SOD SUC 40 MG/1 ML VIAL IV SCH ×3 (04:31→20:30)
[2017-11-06 04:45] LABS: ABG Base Excess 8.7 MMOL/L (-2.5-2.5); ABG HCO3 32.5 MMOL/L (20-26); ABG Oxygen Saturation 97.8 % (95-100); ABG PCO2 53.4 MM HG (35-48); ABG PH 7.422 (7.35-7.45); ABG TCO2 31.4 MMOL/L (23-27); Allen Test Positive; Pt O2 Delivery Device Ventilator
[2017-11-06 04:58] LABS: Basophils % 0.2 % (0.0-0.8); Hematocrit 31.3 VOL% (35.7-47.0); Hemoglobin 9.7 GM/DL (12.0-16.0); Immature Granulocytes Absolute 0.28 #; Lymphocytes # 0.4 10*3/uL (1.4-4.0); Lymphocytes % 3.2 % (21.3-54.2); Mean Corpuscular Hemoglobin 31 PG (27-34); Mean Corpuscular Volume 100.6 FL (87-102); Monocytes # 0.7 10*3/uL (0.11-0.8); Monocytes % 5.1 % (1.7-12.7); Neutrophils # 12.4 10*3/uL (1.4-7.4); Neutrophils % 89.5 % (38.7-73.9); Platelet Count 158 T/CUMM (130-400); Red Blood Count 3.11 MC/CUMM (3.8-5.5); Red Cell Distribution Width 13.9 % (9.3-17.3); White Blood Count 13.9 T/CUMM (4-12)
[2017-11-06 05:10] LABS: INR 1.1; Partial Thromboplastin Time 24.3 SECS (0-40)
[2017-11-06 05:17] LABS: Band Neutrophils 2 % (0-10); Lymphocytes 4 % (20-55); Platelet Estimate Normal; Segmented Neutrophils 88 % (50-85); Total Cells Counted 100
[2017-11-06 05:20] LABS: Calcium 7.9 MG/DL (8.5-10.1); Osmolality,Calculated 303.1 MOS/KG (273-304); Potassium 4.9 MMOL/L (3.5-5.1)
[2017-11-06] MEDS: fentaNYL INJ 2,500 MCG in SODIUM CHLORIDE 0.9% 450 ML IV SCH ×3 (05:30→22:26)
[2017-11-06] MEDS: CISATRACURIUM 200 MG in SODIUM CHLORIDE 0.9% 100 ML IV SCH ×2 (06:20→09:02)
[2017-11-06] MEDS: BUDESONIDE 0.5 MG/2 ML NEB RESP TX SCH ×2 (07:47→21:07)
[2017-11-06] MEDS: ENOXAPARIN 40 MG/0.4 ML SYRINGE SUBCUT SCH (10:05)
[2017-11-06] MEDS: ZINC OXIDE PASTE 113 GM TUBE TOP SCH ×2 (10:05→21:57)
[2017-11-06] MEDS: POTASSIUM PHOS/SOD PHOS POWDER 250 MG PACK NG SCH ×3 (10:06→21:56)
[2017-11-06] MEDS: PANTOPRAZOLE 40 MG VIAL IV SCH (10:06)
[2017-11-06] MEDS: PROPOFOL 1,000 MG/100 ML BOTTLE IV SCH (15:35)
[2017-11-06] MEDS: cefTRIAXone 2,000 MG in SYRINGE 1 EACH IV SCH (15:42)
[2017-11-06] MEDS: AZITHROMYCIN INJ 500 MG in SODIUM CHLORIDE 0.9% 250 ML IV SCH (15:43)
[2017-11-06] MEDS: NYSTATIN 500,000 UNIT/5 ML UDCUP SWISH/SWAL SCH ×2 (17:22→20:29)
[2017-11-07] MEDS: INSULIN REGULAR 100 UNIT/ML SUBCUT SCH ×5 (01:11→23:51)
[2017-11-07] MEDS: CISATRACURIUM 200 MG in SODIUM CHLORIDE 0.9% 100 ML IV SCH ×2 (01:33→06:02)
[2017-11-07] MEDS: ALBUTEROL/IPRATROPIUM 3 ML NEB RESP TX SCH ×4 (01:54→19:24)
[2017-11-07 02:58] LABS: ABG Base Excess 7.2 MMOL/L (-2.5-2.5); ABG Oxygen Saturation 98.6 % (95-100); ABG PCO2 56.7 MM HG (35-48); ABG PH 7.382 (7.35-7.45); Allen Test Positive; Pt O2 Delivery Device Ventilator
[2017-11-07 03:33] LABS: Calcium 7.8 MG/DL (8.5-10.1); Osmolality,Calculated 295.7 MOS/KG (273-304); Potassium 5.1 MMOL/L (3.5-5.1)
[2017-11-07] MEDS: MIDAZOLAM 100 MG in SODIUM CHLORIDE 0.9% 80 ML IV SCH ×2 (03:50→13:26)
[2017-11-07] MEDS: PHENYLEPHRINE DRIP 40 MG/250 ML PREMIX IV SCH (04:03)
[2017-11-07] MEDS: methylPREDNISolone SOD SUC 40 MG/1 ML VIAL IV SCH ×3 (04:46→21:07)
[2017-11-07] MEDS: fentaNYL INJ 2,500 MCG in SODIUM CHLORIDE 0.9% 450 ML IV SCH ×3 (06:02→21:10)
[2017-11-07] MEDS: BUDESONIDE 0.5 MG/2 ML NEB RESP TX SCH ×2 (07:01→19:24)
[2017-11-07] MEDS: ENOXAPARIN 40 MG/0.4 ML SYRINGE SUBCUT SCH (09:57)
[2017-11-07] MEDS: PANTOPRAZOLE 40 MG VIAL IV SCH (09:59)
[2017-11-07] MEDS: NYSTATIN 500,000 UNIT/5 ML UDCUP SWISH/SWAL SCH ×4 (09:59→21:07)
[2017-11-07] MEDS: ZINC OXIDE PASTE 113 GM TUBE TOP SCH ×2 (10:00→21:08)
[2017-11-07] MEDS: POTASSIUM PHOS/SOD PHOS POWDER 250 MG PACK NG SCH ×3 (10:00→21:07)
[2017-11-07] MEDS: PROPOFOL 1,000 MG/100 ML BOTTLE IV SCH ×4 (10:47→22:38)
[2017-11-07 15:41] LABS: HIT Interpretation Negative (Negative)
[2017-11-08] MEDS: ALBUTEROL/IPRATROPIUM 3 ML NEB RESP TX SCH ×4 (00:28→19:50)
[2017-11-08] MEDS: MIDAZOLAM 100 MG in SODIUM CHLORIDE 0.9% 80 ML IV SCH ×3 (01:00→22:55)
[2017-11-08] MEDS: PROPOFOL 1,000 MG/100 ML BOTTLE IV SCH ×7 (01:34→20:30)
[2017-11-08 03:45] LABS: ABG Base Excess 6.7 MMOL/L (-2.5-2.5); ABG HCO3 30.6 MMOL/L (20-26); ABG Oxygen Saturation 98.7 % (95-100); ABG PCO2 59.4 MM HG (35-48); ABG PH 7.361 (7.35-7.45); ABG TCO2 31.1 MMOL/L (23-27)
[2017-11-08] MEDS: fentaNYL INJ 2,500 MCG in SODIUM CHLORIDE 0.9% 450 ML IV SCH ×3 (04:00→20:57)
[2017-11-08 04:31] LABS: Calcium 7.7 MG/DL (8.5-10.1); Osmolality,Calculated 289.4 MOS/KG (273-304); Potassium 4.7 MMOL/L (3.5-5.1)
[2017-11-08] MEDS: methylPREDNISolone SOD SUC 40 MG/1 ML VIAL IV SCH ×3 (05:16→20:58)
[2017-11-08] MEDS: INSULIN REGULAR 100 UNIT/ML SUBCUT SCH ×3 (05:29→19:12)
[2017-11-08] MEDS: CISATRACURIUM 200 MG in SODIUM CHLORIDE 0.9% 100 ML IV SCH (06:23)
[2017-11-08] MEDS: BUDESONIDE 0.5 MG/2 ML NEB RESP TX SCH ×2 (07:20→19:50)
[2017-11-08] MEDS: ENOXAPARIN 40 MG/0.4 ML SYRINGE SUBCUT SCH (08:21)
[2017-11-08] MEDS: cloNIDine 0.2 MG/24 HR PATCH TRANSDERM SCH (08:26)
[2017-11-08] MEDS: POTASSIUM PHOS/SOD PHOS POWDER 250 MG PACK NG SCH ×3 (08:28→20:58)
[2017-11-08] MEDS: PANTOPRAZOLE 40 MG VIAL IV SCH (08:28)
[2017-11-08] MEDS: NYSTATIN 500,000 UNIT/5 ML UDCUP SWISH/SWAL SCH ×4 (08:28→20:58)
[2017-11-08] MEDS: LABETALOL 100 MG/20 ML VIAL IV PRN (08:31)
[2017-11-08] MEDS: ZINC OXIDE PASTE 113 GM TUBE TOP SCH ×2 (10:53→20:58)
[2017-11-08] MEDS ORDERED: cloNIDine 0.3 MG/24 HR PATCH TRANSDERM SCH (11:00)
[2017-11-08 14:35] LABS: ABG Base Excess 5.7 MMOL/L (-2.5-2.5); ABG HCO3 29.6 MMOL/L (20-26); ABG Oxygen Saturation 97.2 % (95-100); ABG PCO2 49.1 MM HG (35-48); ABG PH 7.412 (7.35-7.45); ABG PO2 91.5 MM HG (80-95); ABG TCO2 28.7 MMOL/L (23-27); Allen Test Positive; Pt O2 Delivery Device Ventilator
[2017-11-09] MEDS: INSULIN REGULAR 100 UNIT/ML SUBCUT SCH ×4 (00:10→17:25)
[2017-11-09] MEDS: PROPOFOL 1,000 MG/100 ML BOTTLE IV SCH ×8 (00:46→22:16)
[2017-11-09] MEDS: ALBUTEROL/IPRATROPIUM 3 ML NEB RESP TX SCH ×4 (01:05→19:14)
[2017-11-09] MEDS ORDERED: MORPHINE 2 MG/1 ML SYRINGE IV ONE (02:14)
[2017-11-09] MEDS ORDERED: clonazePAM 0.5 MG TABLET PO ONE (02:14)
[2017-11-09] MEDS: MIDAZOLAM 100 MG in SODIUM CHLORIDE 0.9% 80 ML IV SCH ×3 (02:40→20:15)
[2017-11-09] MEDS ORDERED: MIDAZOLAM 2 MG/2 ML VIAL IV ONE (03:11)
[2017-11-09] MEDS ORDERED: fentaNYL 100 MCG/2 ML VIAL IV ONE (03:11)
[2017-11-09 03:14] LABS: Calcium 7.5 MG/DL (8.5-10.1); Osmolality,Calculated 291.7 MOS/KG (273-304)
[2017-11-09 03:20] LABS: ABG Base Excess 4.3 MMOL/L (-2.5-2.5); ABG HCO3 28.3 MMOL/L (20-26); ABG Oxygen Saturation 94.7 % (95-100); ABG PCO2 50.1 MM HG (35-48); ABG PH 7.388 (7.35-7.45); ABG PO2 76.5 MM HG (80-95); ABG TCO2 27.6 MMOL/L (23-27); Allen Test Positive; Pt O2 Delivery Device Ventilator
[2017-11-09] MEDS: fentaNYL INJ 2,500 MCG in SODIUM CHLORIDE 0.9% 450 ML IV SCH ×3 (04:42→20:41)
[2017-11-09] MEDS: methylPREDNISolone SOD SUC 40 MG/1 ML VIAL IV SCH ×3 (04:52→20:01)
[2017-11-09] MEDS: CISATRACURIUM 200 MG in SODIUM CHLORIDE 0.9% 100 ML IV SCH (05:20)
[2017-11-09] MEDS: BUDESONIDE 0.5 MG/2 ML NEB RESP TX SCH ×2 (08:07→19:14)
[2017-11-09] MEDS: NYSTATIN 500,000 UNIT/5 ML UDCUP SWISH/SWAL SCH ×4 (09:16→20:00)
[2017-11-09] MEDS: ENOXAPARIN 40 MG/0.4 ML SYRINGE SUBCUT SCH (09:16)
[2017-11-09] MEDS: PANTOPRAZOLE 40 MG VIAL IV SCH (09:16)
[2017-11-09] MEDS: POTASSIUM PHOS/SOD PHOS POWDER 250 MG PACK NG SCH ×3 (09:16→20:02)
[2017-11-09] MEDS: ZINC OXIDE PASTE 113 GM TUBE TOP SCH ×2 (09:21→20:02)
[2017-11-09 12:28] LABS: ABG Base Excess 5.6 MMOL/L (-2.5-2.5); ABG HCO3 31.2 MMOL/L (20-26); ABG Oxygen Saturation 98.2 % (95-100); ABG PCO2 50.3 MM HG (35-48); ABG PO2 141.9 MM HG (80-95); ABG TCO2 32.7 MMOL/L (23-27); Allen Test Positive; Pt O2 Delivery Device Ventilator
[2017-11-09 14:10] LABS: Chlamydophila Pneumoniae, PCR NOT DETECTED; Source SPUTUM
[2017-11-10] MEDS: INSULIN REGULAR 100 UNIT/ML SUBCUT SCH ×4 (00:27→18:32)
[2017-11-10] MEDS: ALBUTEROL/IPRATROPIUM 3 ML NEB RESP TX SCH ×4 (01:02→18:10)
[2017-11-10] MEDS: PROPOFOL 1,000 MG/100 ML BOTTLE IV SCH ×9 (01:16→22:46)
[2017-11-10] MEDS: MIDAZOLAM 100 MG in SODIUM CHLORIDE 0.9% 80 ML IV SCH ×3 (02:08→21:39)
[2017-11-10 02:37] LABS: ABG Base Excess 4.5 MMOL/L (-2.5-2.5); ABG HCO3 28.5 MMOL/L (20-26); ABG Oxygen Saturation 99.1 % (95-100); ABG PCO2 50.6 MM HG (35-48); ABG PH 7.388 (7.35-7.45); ABG TCO2 27.8 MMOL/L (23-27); Allen Test Positive; Pt O2 Delivery Device Ventilator
[2017-11-10] MEDS: methylPREDNISolone SOD SUC 40 MG/1 ML VIAL IV SCH ×2 (04:11→20:41)
[2017-11-10 05:06] LABS: Calcium 7.9 MG/DL (8.5-10.1); Potassium 4.2 MMOL/L (3.5-5.1)
[2017-11-10] MEDS: fentaNYL INJ 2,500 MCG in SODIUM CHLORIDE 0.9% 450 ML IV SCH ×2 (05:11→13:30)
[2017-11-10] MEDS: BUDESONIDE 0.5 MG/2 ML NEB RESP TX SCH (07:21)
[2017-11-10] MEDS: NYSTATIN 500,000 UNIT/5 ML UDCUP SWISH/SWAL SCH ×4 (09:59→20:40)
[2017-11-10] MEDS: ENOXAPARIN 40 MG/0.4 ML SYRINGE SUBCUT SCH (09:59)
[2017-11-10] MEDS: POTASSIUM PHOS/SOD PHOS POWDER 250 MG PACK NG SCH ×3 (10:00→20:40)
[2017-11-10] MEDS: ZINC OXIDE PASTE 113 GM TUBE TOP SCH ×2 (10:00→20:40)
[2017-11-10] MEDS: PANTOPRAZOLE 40 MG VIAL IV SCH (10:12)
[2017-11-10] MEDS: FAMOTIDINE 8 MG/ML 50 ML/BOTTLE PO SCH ×2 (11:31→20:40)
[2017-11-11] MEDS: fentaNYL INJ 2,500 MCG in SODIUM CHLORIDE 0.9% 450 ML IV SCH ×3 (01:09→15:03)
[2017-11-11] MEDS: INSULIN REGULAR 100 UNIT/ML SUBCUT SCH ×4 (01:17→18:47)
[2017-11-11] MEDS: PROPOFOL 1,000 MG/100 ML BOTTLE IV SCH ×9 (01:28→23:38)
[2017-11-11] MEDS: ALBUTEROL/IPRATROPIUM 3 ML NEB RESP TX SCH ×4 (01:36→19:55)
[2017-11-11] MEDS: MIDAZOLAM 100 MG in SODIUM CHLORIDE 0.9% 80 ML IV SCH (03:05)
[2017-11-11 03:33] LABS: Allen Test Positive; Pt O2 Delivery Device Ventilator
[2017-11-11 03:36] LABS: ABG Base Excess 4.5 MMOL/L (-2.5-2.5); ABG HCO3 28.5 MMOL/L (20-26); ABG Oxygen Saturation 99.3 % (95-100); ABG PCO2 45.8 MM HG (35-48); ABG PH 7.419 (7.35-7.45); ABG TCO2 27.3 MMOL/L (23-27)
[2017-11-11 04:48] LABS: Basophils % 0.1 % (0.0-0.8); Eosinophils # 0.2 10*3/uL (0.0-0.87); Eosinophils % 1.3 % (0.00-10.9); Hematocrit 24.7 VOL% (35.7-47.0); Hemoglobin 8.5 GM/DL (12.0-16.0); Immature Granulocytes % 2.2 %; Immature Granulocytes Absolute 0.25 #; Lymphocytes # 0.4 10*3/uL (1.4-4.0); Lymphocytes % 3.6 % (21.3-54.2); Mean Corpuscular HGB Conc 34.4 GM/DL (32-36); Mean Corpuscular Hemoglobin 34 PG (27-34); Mean Corpuscular Volume 97.6 FL (87-102); Mean Platelet Volume 11.5 FL (9.6-12.0); Monocytes # 0.5 10*3/uL (0.11-0.8); Monocytes % 4.3 % (1.7-12.7); Neutrophils # 9.9 10*3/uL (1.4-7.4); Neutrophils % 88.5 % (38.7-73.9); Platelet Count 183 T/CUMM (130-400); Red Blood Count 2.53 MC/CUMM (3.8-5.5); Red Cell Distribution Width 13.4 % (9.3-17.3); White Blood Count 11.2 T/CUMM (4-12)
[2017-11-11 05:26] LABS: Albumin 2.3 G/DL (3.4-5.0); Bilirubin,Total 0.6 MG/DL (0.2-1.0); Calcium 7.5 MG/DL (8.5-10.1); Magnesium 2.1 MG/DL (1.8-2.4); Osmolality,Calculated 279.7 MOS/KG (273-304); Potassium 4.4 MMOL/L (3.5-5.1); Total Protein 4.9 G/DL (6.4-8.3)
[2017-11-11 05:42] LABS: Band Neutrophils 11 % (0-10); Eosinophils 1 % (0-10); Hypochromasia 2+; Lymphocytes 4 % (20-55); Platelet Estimate Normal; Segmented Neutrophils 79 % (50-85); Total Cells Counted 100
[2017-11-11 06:01] LABS: Hematocrit 24.4 VOL% (35.7-47.0)
[2017-11-11] MEDS: BUDESONIDE 0.5 MG/2 ML NEB RESP TX SCH ×3 (06:43→19:55)
[2017-11-11] MEDS: ENOXAPARIN 40 MG/0.4 ML SYRINGE SUBCUT SCH (09:47)
[2017-11-11] MEDS: methylPREDNISolone SOD SUC 40 MG/1 ML VIAL IV SCH ×2 (09:47→20:22)
[2017-11-11] MEDS: SERTRALINE 50 MG TABLET PO SCH ×2 (09:48→20:22)
[2017-11-11] MEDS: NYSTATIN 500,000 UNIT/5 ML UDCUP SWISH/SWAL SCH ×4 (09:48→20:22)
[2017-11-11] MEDS: POTASSIUM PHOS/SOD PHOS POWDER 250 MG PACK NG SCH ×3 (09:48→20:22)
[2017-11-11] MEDS: HALOPERIDOL 5 MG TABLET PO SCH ×2 (09:48→20:23)
[2017-11-11] MEDS: FAMOTIDINE 8 MG/ML 50 ML/BOTTLE PO SCH ×2 (09:49→20:32)
[2017-11-11] MEDS: ZINC OXIDE PASTE 113 GM TUBE TOP SCH ×2 (09:49→20:23)
[2017-11-11 11:18] LABS: ABG HCO3 28.9 MMOL/L (20-26); ABG Oxygen Saturation 99.3 % (95-100); ABG PCO2 45.2 MM HG (35-48); ABG PH 7.428 (7.35-7.45); ABG TCO2 27.7 MMOL/L (23-27)
[2017-11-11] MEDS ORDERED: ZIPRASIDONE 20 MG/1 ML VIAL IM ONE (21:07)
[2017-11-12] MEDS: INSULIN REGULAR 100 UNIT/ML SUBCUT SCH ×4 (00:17→17:26)
[2017-11-12] MEDS: PROPOFOL 1,000 MG/100 ML BOTTLE IV SCH ×8 (01:17→23:58)
[2017-11-12] MEDS: MIDAZOLAM 100 MG in SODIUM CHLORIDE 0.9% 80 ML IV SCH ×3 (01:26→21:51)
[2017-11-12 03:35] LABS: ABG Base Excess 5.2 MMOL/L (-2.5-2.5); ABG HCO3 29.1 MMOL/L (20-26); ABG Oxygen Saturation 99.4 % (95-100); ABG PCO2 44.3 MM HG (35-48); ABG PH 7.438 (7.35-7.45); ABG TCO2 27.5 MMOL/L (23-27); Allen Test Positive; Pt O2 Delivery Device Ventilator
[2017-11-12] MEDS: fentaNYL INJ 2,500 MCG in SODIUM CHLORIDE 0.9% 450 ML IV SCH ×2 (04:12→17:27)
[2017-11-12 05:30] LABS: Basophils % 0.1 % (0.0-0.8); Eosinophils # 0.2 10*3/uL (0.0-0.87); Eosinophils % 1.3 % (0.00-10.9); Hematocrit 26.3 VOL% (35.7-47.0); Hemoglobin 8.7 GM/DL (12.0-16.0); Immature Granulocytes % 2.4 %; Immature Granulocytes Absolute 0.32 #; Lymphocytes # 0.6 10*3/uL (1.4-4.0); Lymphocytes % 4.2 % (21.3-54.2); Mean Corpuscular HGB Conc 33.1 GM/DL (32-36); Mean Corpuscular Hemoglobin 32 PG (27-34); Mean Platelet Volume 10.7 FL (9.6-12.0); Monocytes # 0.6 10*3/uL (0.11-0.8); Monocytes % 4.2 % (1.7-12.7); Neutrophils # 11.8 10*3/uL (1.4-7.4); Neutrophils % 87.8 % (38.7-73.9); Platelet Count 205 T/CUMM (130-400); Red Blood Count 2.71 MC/CUMM (3.8-5.5); Red Cell Distribution Width 13.5 % (9.3-17.3); White Blood Count 13.4 T/CUMM (4-12)
[2017-11-12 06:00] LABS: Calcium 8.5 MG/DL (8.5-10.1); Magnesium 2.3 MG/DL (1.8-2.4); Potassium 4.1 MMOL/L (3.5-5.1)
[2017-11-12 06:17] LABS: Eosinophils 1 % (0-10); Lymphocytes 4 % (20-55); Segmented Neutrophils 91 % (50-85)
[2017-11-12 06:18] LABS: Hypochromasia 1+; Platelet Estimate Normal; Polychromasia Few
[2017-11-12 06:19] LABS: Total Cells Counted 100
[2017-11-12] MEDS: ALBUTEROL/IPRATROPIUM 3 ML NEB RESP TX SCH ×4 (08:22→19:51)
[2017-11-12] MEDS: BUDESONIDE 0.5 MG/2 ML NEB RESP TX SCH ×2 (08:23→19:51)
[2017-11-12] MEDS: NYSTATIN 500,000 UNIT/5 ML UDCUP SWISH/SWAL SCH ×4 (08:44→20:00)
[2017-11-12] MEDS: SERTRALINE 50 MG TABLET PO SCH ×2 (08:44→20:01)
[2017-11-12] MEDS: ENOXAPARIN 40 MG/0.4 ML SYRINGE SUBCUT SCH (08:44)
[2017-11-12] MEDS: HALOPERIDOL 5 MG TABLET PO SCH ×3 (08:44→19:56)
[2017-11-12] MEDS: POTASSIUM PHOS/SOD PHOS POWDER 250 MG PACK NG SCH ×3 (08:45→20:00)
[2017-11-12] MEDS: methylPREDNISolone SOD SUC 40 MG/1 ML VIAL IV SCH ×2 (08:46→20:01)
[2017-11-12] MEDS: FAMOTIDINE 8 MG/ML 50 ML/BOTTLE PO SCH ×2 (08:46→20:00)
[2017-11-12] MEDS: ZINC OXIDE PASTE 113 GM TUBE TOP SCH ×2 (08:46→20:00)
[2017-11-13] MEDS: INSULIN REGULAR 100 UNIT/ML SUBCUT SCH ×4 (00:27→17:02)
[2017-11-13] MEDS: MIDAZOLAM 100 MG in SODIUM CHLORIDE 0.9% 80 ML IV SCH ×3 (00:47→20:15)
[2017-11-13] MEDS: ALBUTEROL/IPRATROPIUM 3 ML NEB RESP TX SCH ×4 (01:45→19:20)
[2017-11-13] MEDS: HALOPERIDOL 5 MG TABLET PO SCH ×4 (02:07→20:07)
[2017-11-13] MEDS: PROPOFOL 1,000 MG/100 ML BOTTLE IV SCH ×8 (02:30→22:38)
[2017-11-13 04:11] LABS: ABG HCO3 29.9 MMOL/L (20-26); ABG Oxygen Saturation 99.5 % (95-100); ABG PCO2 51.8 MM HG (35-48); ABG PH 7.396 (7.35-7.45); ABG TCO2 29.6 MMOL/L (23-27); Allen Test Positive; Pt O2 Delivery Device Ventilator
[2017-11-13] MEDS: fentaNYL INJ 2,500 MCG in SODIUM CHLORIDE 0.9% 450 ML IV SCH ×3 (04:32→21:36)
[2017-11-13 06:05] LABS: Calcium 7.6 MG/DL (8.5-10.1); Magnesium 2.2 MG/DL (1.8-2.4); Osmolality,Calculated 279.5 MOS/KG (273-304); Potassium 4.1 MMOL/L (3.5-5.1)
[2017-11-13 06:41] LABS: Magnesium 2.2 MG/DL (1.8-2.4)
[2017-11-13 06:55] LABS: Prealbumin 86.4 MG/DL (20-40)
[2017-11-13] MEDS: BUDESONIDE 0.5 MG/2 ML NEB RESP TX SCH ×2 (07:19→19:20)
[2017-11-13] MEDS: methylPREDNISolone SOD SUC 40 MG/1 ML VIAL IV SCH ×2 (08:11→20:07)
[2017-11-13] MEDS: ZINC OXIDE PASTE 113 GM TUBE TOP SCH ×2 (08:12→20:14)
[2017-11-13] MEDS: SERTRALINE 50 MG TABLET PO SCH ×2 (08:12→20:07)
[2017-11-13] MEDS: POTASSIUM PHOS/SOD PHOS POWDER 250 MG PACK NG SCH ×3 (08:12→20:09)
[2017-11-13] MEDS: FAMOTIDINE 8 MG/ML 50 ML/BOTTLE PO SCH ×2 (08:12→20:09)
[2017-11-13] MEDS: ENOXAPARIN 40 MG/0.4 ML SYRINGE SUBCUT SCH (08:12)
[2017-11-13] MEDS: NYSTATIN 500,000 UNIT/5 ML UDCUP SWISH/SWAL SCH ×4 (08:22→20:07)
[2017-11-13] MEDS ORDERED: SKIN HEALING OINT (AQUAPHOR) 50 GM TUBE TOP PRN (11:17)
[2017-11-13] MEDS ORDERED: FUROSEMIDE 40 MG/4 ML VIAL IV ONE (12:30)
[2017-11-13] MEDS: traZODone 50 MG TABLET PO SCH (20:07)
[2017-11-13] MEDS ORDERED: SODIUM CHLORIDE 0.9% 250 ML IV ONE (21:25)
[2017-11-14] MEDS: INSULIN REGULAR 100 UNIT/ML SUBCUT SCH ×4 (00:15→18:01)
[2017-11-14] MEDS: ALBUTEROL/IPRATROPIUM 3 ML NEB RESP TX SCH ×4 (00:17→19:40)
[2017-11-14] MEDS: MIDAZOLAM 100 MG in SODIUM CHLORIDE 0.9% 80 ML IV SCH ×3 (01:45→18:00)
[2017-11-14] MEDS: PROPOFOL 1,000 MG/100 ML BOTTLE IV SCH ×7 (01:46→21:24)
[2017-11-14] MEDS: HALOPERIDOL 5 MG TABLET PO SCH ×4 (02:30→20:53)
[2017-11-14 03:32] LABS: Basophils % 0.1 % (0.0-0.8); Eosinophils # 0.3 10*3/uL (0.0-0.87); Eosinophils % 2.4 % (0.00-10.9); Hematocrit 26.9 VOL% (35.7-47.0); Hemoglobin 9.1 GM/DL (12.0-16.0); Immature Granulocytes Absolute 0.23 #; Lymphocytes # 0.7 10*3/uL (1.4-4.0); Lymphocytes % 6.1 % (21.3-54.2); Mean Corpuscular HGB Conc 33.8 GM/DL (32-36); Mean Corpuscular Hemoglobin 33 PG (27-34); Mean Corpuscular Volume 97.1 FL (87-102); Mean Platelet Volume 10.7 FL (9.6-12.0); Monocytes # 0.6 10*3/uL (0.11-0.8); Monocytes % 5.4 % (1.7-12.7); Neutrophils # 9.5 10*3/uL (1.4-7.4); Platelet Count 218 T/CUMM (130-400); Red Blood Count 2.77 MC/CUMM (3.8-5.5); Red Cell Distribution Width 13.6 % (9.3-17.3); White Blood Count 11.3 T/CUMM (4-12)
[2017-11-14 03:45] LABS: Allen Test Positive; Pt O2 Delivery Device Ventilator
[2017-11-14 03:47] LABS: ABG Base Excess 6.6 MMOL/L (-2.5-2.5); ABG HCO3 30.5 MMOL/L (20-26); ABG Oxygen Saturation 99.3 % (95-100); ABG PH 7.397 (7.35-7.45); ABG TCO2 30.2 MMOL/L (23-27)
[2017-11-14] MEDS: fentaNYL INJ 2,500 MCG in SODIUM CHLORIDE 0.9% 450 ML IV SCH ×4 (04:33→23:52)
[2017-11-14] MEDS: BUDESONIDE 0.5 MG/2 ML NEB RESP TX SCH ×2 (07:19→19:41)
[2017-11-14] MEDS: ENOXAPARIN 40 MG/0.4 ML SYRINGE SUBCUT SCH (08:18)
[2017-11-14] MEDS: FAMOTIDINE 8 MG/ML 50 ML/BOTTLE PO SCH ×2 (08:24→20:52)
[2017-11-14] MEDS: NYSTATIN 500,000 UNIT/5 ML UDCUP SWISH/SWAL SCH ×4 (08:24→20:53)
[2017-11-14] MEDS: methylPREDNISolone SOD SUC 40 MG/1 ML VIAL IV SCH ×2 (08:24→20:53)
[2017-11-14] MEDS: POTASSIUM PHOS/SOD PHOS POWDER 250 MG PACK NG SCH ×3 (08:24→20:54)
[2017-11-14] MEDS: SERTRALINE 50 MG TABLET PO SCH ×2 (08:25→20:53)
[2017-11-14] MEDS: ZINC OXIDE PASTE 113 GM TUBE TOP SCH ×2 (08:25→20:54)
[2017-11-14] MEDS: NICOTINE 21 MG/24 HR PATCH TRANSDERM SCH (08:35)
[2017-11-14] MEDS ORDERED: cloNIDine 0.1 MG/24 HR PATCH TRANSDERM SCH (09:00)
[2017-11-14] MEDS ORDERED: LIDOCAINE 1%/EPI INJ 20 ML VIAL ONE (10:20)
[2017-11-14] MEDS ORDERED: ceFAZolin 1,000 MG VIAL ONE (11:33)
[2017-11-14] MEDS ORDERED: MIDAZOLAM 10 MG/2 ML VIAL ONE (12:08)
[2017-11-14] MEDS ORDERED: ROCURONIUM 100 MG/10 ML VIAL IV ONE (12:08)
[2017-11-14] MEDS ORDERED: SEVOFLURANE 1 UNIT/15 MINUTE INH ONE (12:09)
[2017-11-14] MEDS: CARVEDILOL 6.25 MG TABLET PO SCH ×2 (15:07→16:32)
[2017-11-14] MEDS: traZODone 50 MG TABLET PO SCH (20:53)
[2017-11-15] MEDS: PROPOFOL 1,000 MG/100 ML BOTTLE IV SCH ×6 (00:28→19:45)
[2017-11-15] MEDS: INSULIN REGULAR 100 UNIT/ML SUBCUT SCH ×4 (01:03→17:40)
[2017-11-15] MEDS: ALBUTEROL/IPRATROPIUM 3 ML NEB RESP TX SCH ×4 (01:11→20:39)
[2017-11-15] MEDS: MIDAZOLAM 100 MG in SODIUM CHLORIDE 0.9% 80 ML IV SCH ×3 (02:38→17:37)
[2017-11-15] MEDS: HALOPERIDOL 5 MG TABLET PO SCH ×4 (03:20→22:00)
[2017-11-15 04:00] LABS: Pt O2 Delivery Device Ventilator
[2017-11-15 04:01] LABS: ABG Base Excess 5.5 MMOL/L (-2.5-2.5); ABG HCO3 30.2 MMOL/L (20-26); ABG Oxygen Saturation 98.8 % (95-100); ABG PH 7.445 (7.35-7.45); ABG PO2 204.6 MM HG (80-95); ABG TCO2 31.6 MMOL/L (23-27)
[2017-11-15 04:04] LABS: Basophils % 0.2 % (0.0-0.8); Eosinophils # 0.3 10*3/uL (0.0-0.87); Hematocrit 26.3 VOL% (35.7-47.0); Hemoglobin 8.4 GM/DL (12.0-16.0); Immature Granulocytes % 1.3 %; Immature Granulocytes Absolute 0.13 #; Lymphocytes # 0.5 10*3/uL (1.4-4.0); Lymphocytes % 4.8 % (21.3-54.2); Mean Corpuscular HGB Conc 31.9 GM/DL (32-36); Mean Corpuscular Hemoglobin 32 PG (27-34); Mean Platelet Volume 11.2 FL (9.6-12.0); Monocytes # 0.4 10*3/uL (0.11-0.8); Monocytes % 4.3 % (1.7-12.7); Neutrophils # 8.6 10*3/uL (1.4-7.4); Neutrophils % 86.4 % (38.7-73.9); Platelet Count 220 T/CUMM (130-400); Red Blood Count 2.63 MC/CUMM (3.8-5.5); Red Cell Distribution Width 13.7 % (9.3-17.3)
[2017-11-15 04:48] LABS: Band Neutrophils 1 % (0-10); Eosinophils 5 % (0-10); Lymphocytes 5 % (20-55); Segmented Neutrophils 84 % (50-85); Total Cells Counted 100
[2017-11-15 04:49] LABS: Giant Platelets Few; Hypochromasia 1+; Microcytosis Slight; Platelet Estimate Adequate
[2017-11-15] MEDS: fentaNYL INJ 2,500 MCG in SODIUM CHLORIDE 0.9% 450 ML IV SCH ×3 (04:57→15:10)
[2017-11-15] MEDS: BUDESONIDE 0.5 MG/2 ML NEB RESP TX SCH ×2 (07:27→20:39)
[2017-11-15] MEDS: CARVEDILOL 6.25 MG TABLET PO SCH (08:57)
[2017-11-15] MEDS: ENOXAPARIN 40 MG/0.4 ML SYRINGE SUBCUT SCH (08:57)
[2017-11-15] MEDS: SERTRALINE 50 MG TABLET PO SCH ×2 (08:57→22:01)
[2017-11-15] MEDS: POTASSIUM PHOS/SOD PHOS POWDER 250 MG PACK NG SCH ×3 (08:57→22:00)
[2017-11-15] MEDS: methylPREDNISolone SOD SUC 40 MG/1 ML VIAL IV SCH ×2 (08:58→21:59)
[2017-11-15] MEDS: NYSTATIN 500,000 UNIT/5 ML UDCUP SWISH/SWAL SCH ×4 (08:58→21:59)
[2017-11-15] MEDS: ZINC OXIDE PASTE 113 GM TUBE TOP SCH (08:58)
[2017-11-15] MEDS: FAMOTIDINE 8 MG/ML 50 ML/BOTTLE PO SCH ×2 (08:58→22:00)
[2017-11-15] MEDS: NICOTINE 21 MG/24 HR PATCH TRANSDERM SCH (15:20)
[2017-11-15] MEDS: CARVEDILOL 12.5 MG TABLET PO SCH (17:30)
[2017-11-15] MEDS: traZODone 50 MG TABLET PO SCH (21:59)
[2017-11-16] MEDS: PROPOFOL 1,000 MG/100 ML BOTTLE IV SCH ×7 (00:30→23:10)
[2017-11-16] MEDS: INSULIN REGULAR 100 UNIT/ML SUBCUT SCH ×4 (00:54→18:22)
[2017-11-16] MEDS: ZINC OXIDE PASTE 113 GM TUBE TOP SCH ×3 (00:54→21:22)
[2017-11-16] MEDS: HALOPERIDOL 5 MG TABLET PO SCH ×4 (02:58→21:22)
[2017-11-16 04:45] LABS: ABG Base Excess 5.8 MMOL/L (-2.5-2.5); ABG HCO3 29.8 MMOL/L (20-26); ABG Oxygen Saturation 99.9 % (95-100); ABG PCO2 47.8 MM HG (35-48); ABG PH 7.422 (7.35-7.45); ABG TCO2 28.6 MMOL/L (23-27)
[2017-11-16] MEDS: ALBUTEROL/IPRATROPIUM 3 ML NEB RESP TX SCH ×4 (05:06→20:43)
[2017-11-16] MEDS: MIDAZOLAM 100 MG in SODIUM CHLORIDE 0.9% 80 ML IV SCH ×2 (05:10→17:00)
[2017-11-16 05:39] LABS: Basophils % 0.2 % (0.0-0.8); Eosinophils # 0.3 10*3/uL (0.0-0.87); Eosinophils % 2.7 % (0.00-10.9); Hematocrit 29.8 VOL% (35.7-47.0); Hemoglobin 9.6 GM/DL (12.0-16.0); Immature Granulocytes % 1.1 %; Immature Granulocytes Absolute 0.12 #; Lymphocytes # 0.7 10*3/uL (1.4-4.0); Lymphocytes % 5.8 % (21.3-54.2); Mean Corpuscular HGB Conc 32.2 GM/DL (32-36); Mean Corpuscular Hemoglobin 31 PG (27-34); Mean Corpuscular Volume 97.1 FL (87-102); Mean Platelet Volume 10.2 FL (9.6-12.0); Monocytes # 0.7 10*3/uL (0.11-0.8); Monocytes % 6.1 % (1.7-12.7); Neutrophils # 9.4 10*3/uL (1.4-7.4); Neutrophils % 84.1 % (38.7-73.9); Platelet Count 238 T/CUMM (130-400); Red Blood Count 3.07 MC/CUMM (3.8-5.5); Red Cell Distribution Width 13.4 % (9.3-17.3); White Blood Count 11.1 T/CUMM (4-12)
[2017-11-16 05:46] LABS: PT Patient Result 10.3 SECS
[2017-11-16] MEDS: fentaNYL INJ 2,500 MCG in SODIUM CHLORIDE 0.9% 450 ML IV SCH (06:51)
[2017-11-16] MEDS: BUDESONIDE 0.5 MG/2 ML NEB RESP TX SCH ×2 (07:36→20:43)
[2017-11-16] MEDS ORDERED: ceFAZolin 1,000 MG in SYRINGE 1 EACH IV ONE (12:00)
[2017-11-16] MEDS: NICOTINE 21 MG/24 HR PATCH TRANSDERM SCH (12:31)
[2017-11-16] MEDS: POTASSIUM PHOS/SOD PHOS POWDER 250 MG PACK NG SCH ×3 (12:32→21:22)
[2017-11-16] MEDS: methylPREDNISolone SOD SUC 40 MG/1 ML VIAL IV SCH ×2 (12:32→21:21)
[2017-11-16] MEDS: NYSTATIN 500,000 UNIT/5 ML UDCUP SWISH/SWAL SCH ×4 (12:32→21:21)
[2017-11-16] MEDS: CARVEDILOL 12.5 MG TABLET PO SCH ×2 (12:45→17:39)
[2017-11-16] MEDS ORDERED: PROPOFOL 200 MG/20 ML VIAL IV ONE (14:59)
[2017-11-16] MEDS: SERTRALINE 50 MG TABLET PO SCH ×2 (17:38→21:22)
[2017-11-16] MEDS: FAMOTIDINE 8 MG/ML 50 ML/BOTTLE PO SCH ×2 (17:38→21:22)
[2017-11-16] MEDS: ceFAZolin 1,000 MG in SYRINGE 1 EACH IV SCH (21:21)
[2017-11-16] MEDS: traZODone 50 MG TABLET PO SCH (21:22)
[2017-11-17] MEDS: INSULIN REGULAR 100 UNIT/ML SUBCUT SCH ×4 (01:09→18:37)
[2017-11-17] MEDS: fentaNYL INJ 2,500 MCG in SODIUM CHLORIDE 0.9% 450 ML IV SCH ×3 (01:10→12:05)
[2017-11-17] MEDS: ALBUTEROL/IPRATROPIUM 3 ML NEB RESP TX SCH ×4 (01:47→20:52)
[2017-11-17] MEDS: MIDAZOLAM 100 MG in SODIUM CHLORIDE 0.9% 80 ML IV SCH (03:38)
[2017-11-17] MEDS: PROPOFOL 1,000 MG/100 ML BOTTLE IV SCH ×6 (03:39→23:35)
[2017-11-17 03:52] LABS: ABG Base Excess 5.1 MMOL/L (-2.5-2.5); ABG HCO3 30.2 MMOL/L (20-26); ABG Oxygen Saturation 98.9 % (95-100); ABG PCO2 47.5 MM HG (35-48); ABG PH 7.421 (7.35-7.45); ABG PO2 208.1 MM HG (80-95); ABG TCO2 31.6 MMOL/L (23-27)
[2017-11-17] MEDS: ceFAZolin 1,000 MG in SYRINGE 1 EACH IV SCH ×2 (04:31→12:04)
[2017-11-17] MEDS: HALOPERIDOL 5 MG TABLET PO SCH ×4 (04:31→21:21)
[2017-11-17] MEDS: BUDESONIDE 0.5 MG/2 ML NEB RESP TX SCH ×2 (07:35→20:53)
[2017-11-17] MEDS: POTASSIUM PHOS/SOD PHOS POWDER 250 MG PACK NG SCH ×3 (08:44→21:21)
[2017-11-17] MEDS: SERTRALINE 50 MG TABLET PO SCH ×2 (08:44→21:19)
[2017-11-17] MEDS: CARVEDILOL 12.5 MG TABLET PO SCH (08:44)
[2017-11-17] MEDS: NYSTATIN 500,000 UNIT/5 ML UDCUP SWISH/SWAL SCH ×4 (08:44→21:20)
[2017-11-17] MEDS: NICOTINE 21 MG/24 HR PATCH TRANSDERM SCH (08:44)
[2017-11-17] MEDS: ZINC OXIDE PASTE 113 GM TUBE TOP SCH ×2 (08:45→21:21)
[2017-11-17] MEDS: FAMOTIDINE 8 MG/ML 50 ML/BOTTLE PO SCH ×2 (08:45→21:21)
[2017-11-17] MEDS: methylPREDNISolone SOD SUC 40 MG/1 ML VIAL IV SCH ×2 (09:07→21:19)
[2017-11-17] MEDS: CARVEDILOL 6.25 MG TABLET PO SCH (16:49)
[2017-11-17] MEDS: traZODone 50 MG TABLET PO SCH (21:19)
[2017-11-18] MEDS: INSULIN REGULAR 100 UNIT/ML SUBCUT SCH ×4 (01:11→17:19)
[2017-11-18] MEDS: ALBUTEROL/IPRATROPIUM 3 ML NEB RESP TX SCH ×4 (01:16→19:31)
[2017-11-18] MEDS: PROPOFOL 1,000 MG/100 ML BOTTLE IV SCH ×9 (01:27→21:51)
[2017-11-18] MEDS: HALOPERIDOL 5 MG TABLET PO SCH ×4 (02:33→19:42)
[2017-11-18 04:17] LABS: ABG Base Excess 5.5 MMOL/L (-2.5-2.5); ABG HCO3 29.5 MMOL/L (20-26); ABG PCO2 40.9 MM HG (35-48); ABG PH 7.469 (7.35-7.45); Allen Test Positive; Pt O2 Delivery Device Ventilator
[2017-11-18] MEDS: BUDESONIDE 0.5 MG/2 ML NEB RESP TX SCH (07:44)
[2017-11-18 08:44] LABS: Allen Test Positive; Pt O2 Delivery Device Ventilator
[2017-11-18 08:46] LABS: ABG Base Excess 6.4 MMOL/L (-2.5-2.5); ABG HCO3 30.3 MMOL/L (20-26); ABG Oxygen Saturation 99.4 % (95-100); ABG PCO2 44.9 MM HG (35-48); ABG TCO2 28.3 MMOL/L (23-27)
[2017-11-18] MEDS: SERTRALINE 50 MG TABLET PO SCH ×2 (08:59→20:23)
[2017-11-18] MEDS: CARVEDILOL 6.25 MG TABLET PO SCH ×2 (08:59→16:13)
[2017-11-18] MEDS: NICOTINE 21 MG/24 HR PATCH TRANSDERM SCH (08:59)
[2017-11-18] MEDS: NYSTATIN 500,000 UNIT/5 ML UDCUP SWISH/SWAL SCH ×4 (08:59→20:23)
[2017-11-18] MEDS: methylPREDNISolone SOD SUC 40 MG/1 ML VIAL IV SCH (08:59)
[2017-11-18] MEDS: ENOXAPARIN 40 MG/0.4 ML SYRINGE SUBCUT SCH (08:59)
[2017-11-18] MEDS: ZINC OXIDE PASTE 113 GM TUBE TOP SCH ×3 (08:59→20:23)
[2017-11-18] MEDS: FAMOTIDINE 8 MG/ML 50 ML/BOTTLE PO SCH ×2 (09:00→20:23)
[2017-11-18] MEDS: POTASSIUM PHOS/SOD PHOS POWDER 250 MG PACK NG SCH ×3 (09:02→20:24)
[2017-11-18] MEDS: traZODone 50 MG TABLET PO SCH (20:23)
[2017-11-19] MEDS: PROPOFOL 1,000 MG/100 ML BOTTLE IV SCH ×9 (00:26→22:45)
[2017-11-19] MEDS: ALBUTEROL/IPRATROPIUM 3 ML NEB RESP TX SCH ×4 (00:44→20:04)
[2017-11-19] MEDS: INSULIN REGULAR 100 UNIT/ML SUBCUT SCH ×5 (01:19→23:53)
[2017-11-19] MEDS: HALOPERIDOL 5 MG TABLET PO SCH ×4 (03:00→20:21)
[2017-11-19 04:24] LABS: Basophils % 0.3 % (0.0-0.8); Eosinophils # 2.9 10*3/uL (0.0-0.87); Hematocrit 30.3 VOL% (35.7-47.0); Hemoglobin 10.3 GM/DL (12.0-16.0); Immature Granulocytes % 0.5 %; Immature Granulocytes Absolute 0.05 #; Lymphocytes # 1.7 10*3/uL (1.4-4.0); Lymphocytes % 16.4 % (21.3-54.2); Mean Corpuscular Hemoglobin 33 PG (27-34); Mean Corpuscular Volume 98.1 FL (87-102); Mean Platelet Volume 10.3 FL (9.6-12.0); Monocytes # 0.6 10*3/uL (0.11-0.8); Neutrophils # 5.1 10*3/uL (1.4-7.4); Neutrophils % 48.8 % (38.7-73.9); Platelet Count 164 T/CUMM (130-400); Red Blood Count 3.09 MC/CUMM (3.8-5.5); Red Cell Distribution Width 13.8 % (9.3-17.3); White Blood Count 10.4 T/CUMM (4-12)
[2017-11-19 05:06] LABS: Calcium 7.9 MG/DL (8.5-10.1); Osmolality,Calculated 276.8 MOS/KG (273-304); Potassium 3.1 MMOL/L (3.5-5.1)
[2017-11-19 06:11] LABS: Band Neutrophils 1 % (0-10); Eosinophils 22 % (0-10); Lymphocytes 14 % (20-55); Myelocytes 1 %; Segmented Neutrophils 61 % (50-85); Total Cells Counted 100
[2017-11-19 06:13] LABS: Anisocytosis 1+; Smudge Cells Many; Target Cells Few
[2017-11-19 06:14] LABS: Platelet Estimate Normal
[2017-11-19 06:38] LABS: ABG Base Excess 4.6 MMOL/L (-2.5-2.5); ABG HCO3 28.6 MMOL/L (20-26); ABG Oxygen Saturation 99.9 % (95-100); ABG PH 7.441 (7.35-7.45); ABG TCO2 26.4 MMOL/L (23-27)
[2017-11-19] MEDS: BUDESONIDE 0.5 MG/2 ML NEB RESP TX SCH ×3 (08:02→23:53)
[2017-11-19] MEDS: ENOXAPARIN 40 MG/0.4 ML SYRINGE SUBCUT SCH (08:17)
[2017-11-19] MEDS: NYSTATIN 500,000 UNIT/5 ML UDCUP SWISH/SWAL SCH ×4 (08:18→20:21)
[2017-11-19] MEDS: POTASSIUM CHLORIDE 20 MEQ/15 ML UDCUP PER TUBE PRN ×4 (08:18→16:24)
[2017-11-19] MEDS: NICOTINE 21 MG/24 HR PATCH TRANSDERM SCH (08:18)
[2017-11-19] MEDS: methylPREDNISolone SOD SUC 40 MG/1 ML VIAL IV SCH (08:18)
[2017-11-19] MEDS: CARVEDILOL 6.25 MG TABLET PO SCH ×2 (08:19→16:24)
[2017-11-19] MEDS: FAMOTIDINE 8 MG/ML 50 ML/BOTTLE PO SCH ×2 (08:19→20:20)
[2017-11-19] MEDS: SERTRALINE 50 MG TABLET PO SCH ×2 (08:19→20:21)
[2017-11-19] MEDS: ZINC OXIDE PASTE 113 GM TUBE TOP SCH ×2 (08:19→20:21)
[2017-11-19] MEDS: POTASSIUM PHOS/SOD PHOS POWDER 250 MG PACK NG SCH (08:20)
[2017-11-19] MEDS: HYDROmorphone 2 MG/1 ML VIAL IV PRN (11:38)
[2017-11-19] MEDS: POTASSIUM CHLORIDE 20 MEQ TABLET PO SCH (13:44)
[2017-11-19] MEDS: traZODone 50 MG TABLET PO SCH (20:21)
[2017-11-19] MEDS ORDERED: FUROSEMIDE 40 MG/4 ML VIAL IV ONE (22:30)
[2017-11-20] MEDS: ALBUTEROL/IPRATROPIUM 3 ML NEB RESP TX SCH ×4 (01:17→21:29)
[2017-11-20] MEDS: PROPOFOL 1,000 MG/100 ML BOTTLE IV SCH ×4 (01:28→12:35)
[2017-11-20] MEDS: HALOPERIDOL 5 MG TABLET PO SCH ×4 (01:59→21:31)
[2017-11-20] MEDS: HYDROmorphone 2 MG/1 ML VIAL IV PRN (01:59)
[2017-11-20 03:53] LABS: ABG Base Excess 5.2 MMOL/L (-2.5-2.5); ABG HCO3 29.7 MMOL/L (20-26); ABG Oxygen Saturation 98.5 % (95-100); ABG PCO2 43.2 MM HG (35-48); ABG PH 7.455 (7.35-7.45); ABG PO2 119.7 MM HG (80-95); Allen Test Positive; Pt O2 Delivery Device Ventilator
[2017-11-20] MEDS: INSULIN REGULAR 100 UNIT/ML SUBCUT SCH ×3 (05:21→17:23)
[2017-11-20 06:33] LABS: Calcium 8.3 MG/DL (8.5-10.1); Osmolality,Calculated 273.1 MOS/KG (273-304); Potassium 3.4 MMOL/L (3.5-5.1)
[2017-11-20] MEDS: POTASSIUM CHLORIDE 20 MEQ/15 ML UDCUP PER TUBE PRN ×3 (06:44→12:01)
[2017-11-20] MEDS: BUDESONIDE 0.5 MG/2 ML NEB RESP TX SCH ×2 (07:17→21:29)
[2017-11-20] MEDS ORDERED: cloNIDine 0.1 MG/24 HR PATCH TRANSDERM SCH (09:00)
[2017-11-20] MEDS: CARVEDILOL 6.25 MG TABLET PO SCH ×2 (09:43→16:48)
[2017-11-20] MEDS: SERTRALINE 50 MG TABLET PO SCH ×2 (09:43→21:31)
[2017-11-20] MEDS: POTASSIUM CHLORIDE 20 MEQ TABLET PO SCH (09:43)
[2017-11-20] MEDS: ENOXAPARIN 40 MG/0.4 ML SYRINGE SUBCUT SCH (09:43)
[2017-11-20] MEDS: ZINC OXIDE PASTE 113 GM TUBE TOP SCH ×2 (09:44→21:32)
[2017-11-20] MEDS: NICOTINE 21 MG/24 HR PATCH TRANSDERM SCH (09:44)
[2017-11-20] MEDS: FAMOTIDINE 8 MG/ML 50 ML/BOTTLE PO SCH ×2 (09:44→21:31)
[2017-11-20] MEDS: NYSTATIN 500,000 UNIT/5 ML UDCUP SWISH/SWAL SCH ×4 (09:44→21:31)
[2017-11-20] MEDS: methylPREDNISolone SOD SUC 40 MG/1 ML VIAL IV SCH (12:00)
[2017-11-20] MEDS: traZODone 50 MG TABLET PO SCH (21:31)
[2017-11-21] MEDS: INSULIN REGULAR 100 UNIT/ML SUBCUT SCH ×4 (00:22→19:05)
[2017-11-21] MEDS: ALBUTEROL/IPRATROPIUM 3 ML NEB RESP TX SCH ×4 (00:38→19:37)
[2017-11-21 04:39] LABS: ABG Base Excess 4.6 MMOL/L (-2.5-2.5); ABG HCO3 28.6 MMOL/L (20-26); ABG Oxygen Saturation 99.3 % (95-100); ABG PH 7.449 (7.35-7.45); ABG TCO2 24.4 MMOL/L (23-27); Allen Test Positive; Pt O2 Delivery Device Ventilator
[2017-11-21] MEDS: HALOPERIDOL 5 MG TABLET PO SCH ×4 (04:40→22:42)
[2017-11-21 06:14] LABS: Osmolality,Calculated 288.1 MOS/KG (273-304); Potassium 3.7 MMOL/L (3.5-5.1)
[2017-11-21 06:17] LABS: Prealbumin 34.2 MG/DL (20-40)
[2017-11-21] MEDS: BUDESONIDE 0.5 MG/2 ML NEB RESP TX SCH ×2 (07:49→19:35)
[2017-11-21] MEDS: ENOXAPARIN 40 MG/0.4 ML SYRINGE SUBCUT SCH (08:39)
[2017-11-21] MEDS: NICOTINE 21 MG/24 HR PATCH TRANSDERM SCH (08:39)
[2017-11-21] MEDS: NYSTATIN 500,000 UNIT/5 ML UDCUP SWISH/SWAL SCH ×4 (08:40→22:42)
[2017-11-21] MEDS: methylPREDNISolone SOD SUC 40 MG/1 ML VIAL IV SCH (08:40)
[2017-11-21] MEDS: CARVEDILOL 6.25 MG TABLET PO SCH ×2 (08:40→17:00)
[2017-11-21] MEDS: amLODIPine 10 MG TABLET PEG SCH (08:40)
[2017-11-21] MEDS: SERTRALINE 50 MG TABLET PO SCH ×2 (08:40→22:42)
[2017-11-21] MEDS: FAMOTIDINE 8 MG/ML 50 ML/BOTTLE PO SCH ×2 (08:41→22:43)
[2017-11-21] MEDS: ZINC OXIDE PASTE 113 GM TUBE TOP SCH ×2 (08:41→22:43)
[2017-11-21] MEDS: PROPOFOL 1,000 MG/100 ML BOTTLE IV SCH (12:55)
[2017-11-21] MEDS: HYDROmorphone 2 MG/1 ML VIAL IV PRN (13:12)
[2017-11-21] MEDS: traZODone 50 MG TABLET PO SCH (22:42)
[2017-11-22] MEDS: INSULIN REGULAR 100 UNIT/ML SUBCUT SCH ×4 (00:56→18:30)
[2017-11-22] MEDS: ALBUTEROL/IPRATROPIUM 3 ML NEB RESP TX SCH ×4 (00:59→21:00)
[2017-11-22] MEDS: HALOPERIDOL 5 MG TABLET PO SCH ×4 (02:13→21:07)
[2017-11-22 05:33] LABS: Basophils % 0.3 % (0.0-0.8); Eosinophils # 4.9 10*3/uL (0.0-0.87); Eosinophils % 40.6 % (0.00-10.9); Hematocrit 33.7 VOL% (35.7-47.0); Hemoglobin 10.8 GM/DL (12.0-16.0); Immature Granulocytes % 0.5 %; Immature Granulocytes Absolute 0.06 #; Lymphocytes % 16.2 % (21.3-54.2); Mean Corpuscular Hemoglobin 32 PG (27-34); Mean Corpuscular Volume 98.5 FL (87-102); Mean Platelet Volume 10.1 FL (9.6-12.0); Monocytes # 0.7 10*3/uL (0.11-0.8); Neutrophils # 4.4 10*3/uL (1.4-7.4); Neutrophils % 36.4 % (38.7-73.9); Platelet Count 185 T/CUMM (130-400); Red Blood Count 3.42 MC/CUMM (3.8-5.5); Red Cell Distribution Width 13.7 % (9.3-17.3); White Blood Count 12.1 T/CUMM (4-12)
[2017-11-22 05:57] LABS: Band Neutrophils 1 % (0-10); Eosinophils 38 % (0-10); Lymphocytes 16 % (20-55); Segmented Neutrophils 40 % (50-85); Total Cells Counted 100
[2017-11-22 05:58] LABS: Hypochromasia Slight; Microcytosis Slight; Platelet Estimate Adequate
[2017-11-22 06:06] LABS: Bilirubin,Total 0.8 MG/DL (0.2-1.0); Calcium 9.1 MG/DL (8.5-10.1); Osmolality,Calculated 285.3 MOS/KG (273-304); Potassium 3.5 MMOL/L (3.5-5.1); Total Protein 6.4 G/DL (6.4-8.3)
[2017-11-22] MEDS: BUDESONIDE 0.5 MG/2 ML NEB RESP TX SCH ×2 (07:14→21:00)
[2017-11-22] MEDS: ENOXAPARIN 40 MG/0.4 ML SYRINGE SUBCUT SCH (09:09)
[2017-11-22] MEDS: methylPREDNISolone SOD SUC 40 MG/1 ML VIAL IV SCH (09:09)
[2017-11-22] MEDS: NYSTATIN 500,000 UNIT/5 ML UDCUP SWISH/SWAL SCH ×4 (09:09→21:07)
[2017-11-22] MEDS: amLODIPine 10 MG TABLET PEG SCH (09:10)
[2017-11-22] MEDS: CARVEDILOL 6.25 MG TABLET PO SCH ×2 (09:10→18:30)
[2017-11-22] MEDS: SERTRALINE 50 MG TABLET PO SCH ×2 (09:10→21:07)
[2017-11-22] MEDS: ZINC OXIDE PASTE 113 GM TUBE TOP SCH ×2 (09:11→21:07)
[2017-11-22] MEDS: NICOTINE 21 MG/24 HR PATCH TRANSDERM SCH (09:11)
[2017-11-22] MEDS: FAMOTIDINE 8 MG/ML 50 ML/BOTTLE PO SCH ×2 (09:11→21:07)
[2017-11-22] MEDS: PROPOFOL 1,000 MG/100 ML BOTTLE IV SCH (12:56)
[2017-11-22] MEDS: traZODone 50 MG TABLET PO SCH (21:07)
[2017-11-23] MEDS: INSULIN REGULAR 100 UNIT/ML SUBCUT SCH ×4 (00:25→18:30)
[2017-11-23] MEDS: ALBUTEROL/IPRATROPIUM 3 ML NEB RESP TX SCH ×4 (01:10→20:45)
[2017-11-23] MEDS: HALOPERIDOL 5 MG TABLET PO SCH ×4 (03:11→20:53)
[2017-11-23 03:25] LABS: ABG Base Excess 3.8 MMOL/L (-2.5-2.5); ABG HCO3 27.8 MMOL/L (20-26); ABG Oxygen Saturation 99.5 % (95-100); ABG PCO2 40.6 MM HG (35-48); ABG PH 7.448 (7.35-7.45); ABG TCO2 24.6 MMOL/L (23-27); Pt O2 Delivery Device Ventilator
[2017-11-23] MEDS: BUDESONIDE 0.5 MG/2 ML NEB RESP TX SCH ×2 (07:15→20:45)
[2017-11-23] MEDS: SERTRALINE 50 MG TABLET PO SCH ×2 (08:16→20:53)
[2017-11-23] MEDS: NYSTATIN 500,000 UNIT/5 ML UDCUP SWISH/SWAL SCH ×4 (08:16→23:13)
[2017-11-23] MEDS: CARVEDILOL 6.25 MG TABLET PO SCH ×2 (08:16→17:29)
[2017-11-23] MEDS: methylPREDNISolone SOD SUC 40 MG/1 ML VIAL IV SCH (08:16)
[2017-11-23] MEDS: ZINC OXIDE PASTE 113 GM TUBE TOP SCH ×2 (08:17→21:28)
[2017-11-23] MEDS: FAMOTIDINE 8 MG/ML 50 ML/BOTTLE PO SCH ×2 (08:17→21:28)
[2017-11-23] MEDS: amLODIPine 10 MG TABLET PEG SCH (08:17)
[2017-11-23] MEDS: ENOXAPARIN 40 MG/0.4 ML SYRINGE SUBCUT SCH (08:17)
[2017-11-23] MEDS: NICOTINE 21 MG/24 HR PATCH TRANSDERM SCH (08:17)
[2017-11-23] MEDS: PROPOFOL 1,000 MG/100 ML BOTTLE IV SCH (12:37)
[2017-11-23] MEDS: HYDROmorphone 2 MG/1 ML VIAL IV PRN (18:09)
[2017-11-23] MEDS: traZODone 50 MG TABLET PO SCH (20:53)
[2017-11-23] MEDS: ONDANSETRON 4 MG/2 ML VIAL IV PRN (23:13)
[2017-11-24] MEDS: HYDROmorphone 2 MG/1 ML VIAL IV PRN (00:09)
[2017-11-24] MEDS: INSULIN REGULAR 100 UNIT/ML SUBCUT SCH ×4 (00:10→17:55)
[2017-11-24] MEDS: ALBUTEROL/IPRATROPIUM 3 ML NEB RESP TX SCH ×4 (00:39→20:16)
[2017-11-24] MEDS: HALOPERIDOL 5 MG TABLET PO SCH ×4 (02:21→20:16)
[2017-11-24 05:07] LABS: Basophils % 0.4 % (0.0-0.8); Eosinophils # 3.4 10*3/uL (0.0-0.87); Eosinophils % 35.2 % (0.00-10.9); Hematocrit 32.4 VOL% (35.7-47.0); Hemoglobin 10.4 GM/DL (12.0-16.0); Immature Granulocytes % 0.4 %; Immature Granulocytes Absolute 0.04 #; Lymphocytes # 1.9 10*3/uL (1.4-4.0); Mean Corpuscular HGB Conc 32.1 GM/DL (32-36); Mean Corpuscular Hemoglobin 32 PG (27-34); Mean Corpuscular Volume 98.8 FL (87-102); Mean Platelet Volume 10.1 FL (9.6-12.0); Monocytes # 0.7 10*3/uL (0.11-0.8); Monocytes % 7.7 % (1.7-12.7); Neutrophils # 3.5 10*3/uL (1.4-7.4); Neutrophils % 36.3 % (38.7-73.9); Platelet Count 217 T/CUMM (130-400); Red Blood Count 3.28 MC/CUMM (3.8-5.5); Red Cell Distribution Width 13.4 % (9.3-17.3); White Blood Count 9.6 T/CUMM (4-12)
[2017-11-24 05:41] LABS: Albumin 2.9 G/DL (3.4-5.0); Bilirubin,Total 0.8 MG/DL (0.2-1.0); Calcium 8.5 MG/DL (8.5-10.1); Magnesium 1.9 MG/DL (1.8-2.4); Osmolality,Calculated 280.4 MOS/KG (273-304); Potassium 3.2 MMOL/L (3.5-5.1); Total Protein 5.9 G/DL (6.4-8.3)
[2017-11-24 05:47] LABS: Eosinophils 35 % (0-10); Giant Platelets Few; Hypochromasia 1+; Lymphocytes 16 % (20-55); Microcytosis Slight; Platelet Estimate Adequate; Segmented Neutrophils 47 % (50-85); Total Cells Counted 100
[2017-11-24] MEDS: BUDESONIDE 0.5 MG/2 ML NEB RESP TX SCH ×2 (07:35→20:16)
[2017-11-24] MEDS: ZINC OXIDE PASTE 113 GM TUBE TOP SCH ×2 (09:06→20:17)
[2017-11-24] MEDS: NYSTATIN 500,000 UNIT/5 ML UDCUP SWISH/SWAL SCH ×4 (09:06→20:17)
[2017-11-24] MEDS: CARVEDILOL 6.25 MG TABLET PO SCH ×2 (09:06→17:39)
[2017-11-24] MEDS: ENOXAPARIN 40 MG/0.4 ML SYRINGE SUBCUT SCH (09:06)
[2017-11-24] MEDS: FAMOTIDINE 8 MG/ML 50 ML/BOTTLE PO SCH ×2 (09:07→20:17)
[2017-11-24] MEDS: NICOTINE 21 MG/24 HR PATCH TRANSDERM SCH (09:07)
[2017-11-24] MEDS: methylPREDNISolone SOD SUC 40 MG/1 ML VIAL IV SCH ×2 (09:07→11:35)
[2017-11-24] MEDS: amLODIPine 10 MG TABLET PEG SCH (09:07)
[2017-11-24] MEDS: SERTRALINE 50 MG TABLET PO SCH ×2 (09:07→20:16)
[2017-11-24] MEDS: POTASSIUM CHLORIDE 20 MEQ/15 ML UDCUP PER TUBE PRN ×3 (09:30→17:39)
[2017-11-24] MEDS ORDERED: METOCLOPRAMIDE 10 MG/2 ML VIAL IV PRN (10:44)
[2017-11-24] MEDS: PROPOFOL 1,000 MG/100 ML BOTTLE IV SCH (11:35)
[2017-11-24 14:09] LABS: ABG Base Excess 3.9 MMOL/L (-2.5-2.5); ABG HCO3 27.9 MMOL/L (20-26); ABG Oxygen Saturation 99.9 % (95-100); ABG PCO2 41.3 MM HG (35-48); ABG PH 7.444 (7.35-7.45); ABG TCO2 25.3 MMOL/L (23-27)
[2017-11-24] MEDS: traZODone 50 MG TABLET PO SCH (20:16)
[2017-11-25] MEDS: ALBUTEROL/IPRATROPIUM 3 ML NEB RESP TX SCH ×5 (01:00→20:45)
[2017-11-25] MEDS: INSULIN REGULAR 100 UNIT/ML SUBCUT SCH ×4 (01:01→18:27)
[2017-11-25] MEDS: methylPREDNISolone SOD SUC 40 MG/1 ML VIAL IV SCH ×3 (01:23→23:40)
[2017-11-25] MEDS: HALOPERIDOL 5 MG TABLET PO SCH ×4 (01:50→20:00)
[2017-11-25] MEDS: HYDROmorphone 2 MG/1 ML VIAL IV PRN ×2 (03:34→20:13)
[2017-11-25 03:54] LABS: ABG Base Excess 1.1 MMOL/L (-2.5-2.5); ABG HCO3 25.4 MMOL/L (20-26); ABG Oxygen Saturation 99.4 % (95-100); ABG PCO2 40.2 MM HG (35-48); ABG PH 7.413 (7.35-7.45); ABG TCO2 22.6 MMOL/L (23-27); Allen Test Positive; Pt O2 Delivery Device Ventilator
[2017-11-25 07:00] LABS: Osmolality,Calculated 281.5 MOS/KG (273-304); Potassium 4.1 MMOL/L (3.5-5.1)
[2017-11-25 07:15] LABS: Basophils % 0.5 % (0.0-0.8); Eosinophils # 0.2 10*3/uL (0.0-0.87); Eosinophils % 2.7 % (0.00-10.9); Hematocrit 32.8 VOL% (35.7-47.0); Hemoglobin 10.4 GM/DL (12.0-16.0); Immature Granulocytes % 0.9 %; Immature Granulocytes Absolute 0.05 #; Lymphocytes # 0.7 10*3/uL (1.4-4.0); Lymphocytes % 12.6 % (21.3-54.2); Mean Corpuscular HGB Conc 31.7 GM/DL (32-36); Mean Corpuscular Hemoglobin 31 PG (27-34); Mean Corpuscular Volume 98.8 FL (87-102); Mean Platelet Volume 10.8 FL (9.6-12.0); Monocytes # 0.2 10*3/uL (0.11-0.8); Monocytes % 3.2 % (1.7-12.7); Neutrophils # 4.5 10*3/uL (1.4-7.4); Neutrophils % 80.1 % (38.7-73.9); Platelet Count 250 T/CUMM (130-400); Red Blood Count 3.32 MC/CUMM (3.8-5.5); Red Cell Distribution Width 13.2 % (9.3-17.3); White Blood Count 5.6 T/CUMM (4-12)
[2017-11-25] MEDS: BUDESONIDE 0.5 MG/2 ML NEB RESP TX SCH ×2 (07:46→20:45)
[2017-11-25] MEDS: SERTRALINE 50 MG TABLET PO SCH ×2 (09:22→20:35)
[2017-11-25] MEDS: amLODIPine 10 MG TABLET PEG SCH (09:22)
[2017-11-25] MEDS: FAMOTIDINE 8 MG/ML 50 ML/BOTTLE PO SCH ×2 (09:23→20:35)
[2017-11-25] MEDS: ENOXAPARIN 40 MG/0.4 ML SYRINGE SUBCUT SCH (09:23)
[2017-11-25] MEDS: ZINC OXIDE PASTE 113 GM TUBE TOP SCH (09:23)
[2017-11-25] MEDS: NYSTATIN 500,000 UNIT/5 ML UDCUP SWISH/SWAL SCH ×4 (09:23→20:35)
[2017-11-25] MEDS: CARVEDILOL 6.25 MG TABLET PO SCH ×2 (09:25→18:12)
[2017-11-25] MEDS: NICOTINE 21 MG/24 HR PATCH TRANSDERM SCH (11:51)
[2017-11-25] MEDS: PROPOFOL 1,000 MG/100 ML BOTTLE IV SCH (13:42)
[2017-11-25] MEDS: ONDANSETRON 4 MG/2 ML VIAL IV PRN (20:00)
[2017-11-25] MEDS: traZODone 50 MG TABLET PO SCH (20:35)
[2017-11-26] MEDS: ALBUTEROL/IPRATROPIUM 3 ML NEB RESP TX SCH ×4 (00:27→20:52)
[2017-11-26] MEDS: ZINC OXIDE PASTE 113 GM TUBE TOP SCH ×3 (00:50→21:33)
[2017-11-26] MEDS: INSULIN REGULAR 100 UNIT/ML SUBCUT SCH ×2 (00:51→06:35)
[2017-11-26] MEDS ORDERED: ZALEPLON 5 MG CAPSULE ONE (01:40)
[2017-11-26] MEDS: ZALEPLON 5 MG CAPSULE PO PRN (02:00)
[2017-11-26] MEDS: HALOPERIDOL 5 MG TABLET PO SCH ×4 (02:00→21:32)
[2017-11-26] MEDS ORDERED: diphenhydrAMINE 50 MG/1 ML VIAL IV ONE (03:29)
[2017-11-26] MEDS ORDERED: diphenhydrAMINE 50 MG/1 ML VIAL ONE (03:37)
[2017-11-26 04:49] LABS: Basophils % 0.3 % (0.0-0.8); Eosinophils % 0.3 % (0.00-10.9); Hematocrit 32.4 VOL% (35.7-47.0); Hemoglobin 10.5 GM/DL (12.0-16.0); Immature Granulocytes % 0.5 %; Immature Granulocytes Absolute 0.03 #; Lymphocytes # 0.9 10*3/uL (1.4-4.0); Lymphocytes % 15.6 % (21.3-54.2); Mean Corpuscular HGB Conc 32.4 GM/DL (32-36); Mean Corpuscular Hemoglobin 32 PG (27-34); Mean Corpuscular Volume 97.3 FL (87-102); Mean Platelet Volume 10.2 FL (9.6-12.0); Monocytes # 0.3 10*3/uL (0.11-0.8); Monocytes % 5.3 % (1.7-12.7); Neutrophils # 4.7 10*3/uL (1.4-7.4); Platelet Count 278 T/CUMM (130-400); Red Blood Count 3.33 MC/CUMM (3.8-5.5); Red Cell Distribution Width 13.2 % (9.3-17.3)
[2017-11-26 04:49] LABS: ABG Base Excess 3.2 MMOL/L (-2.5-2.5); ABG HCO3 27.3 MMOL/L (20-26); ABG PCO2 41.5 MM HG (35-48); ABG PH 7.433 (7.35-7.45); ABG TCO2 24.9 MMOL/L (23-27)
[2017-11-26 05:35] LABS: Albumin 3.2 G/DL (3.4-5.0); Bilirubin,Total 0.8 MG/DL (0.2-1.0); Magnesium 1.9 MG/DL (1.8-2.4); Osmolality,Calculated 282.4 MOS/KG (273-304); Potassium 3.9 MMOL/L (3.5-5.1); Total Protein 6.1 G/DL (6.4-8.3)
[2017-11-26] MEDS: BUDESONIDE 0.5 MG/2 ML NEB RESP TX SCH ×2 (07:58→20:52)
[2017-11-26] MEDS: NICOTINE 21 MG/24 HR PATCH TRANSDERM SCH (09:25)
[2017-11-26] MEDS: FAMOTIDINE 8 MG/ML 50 ML/BOTTLE PO SCH ×2 (09:25→21:33)
[2017-11-26] MEDS: amLODIPine 10 MG TABLET PEG SCH (09:25)
[2017-11-26] MEDS: ENOXAPARIN 40 MG/0.4 ML SYRINGE SUBCUT SCH (09:26)
[2017-11-26] MEDS: NYSTATIN 500,000 UNIT/5 ML UDCUP SWISH/SWAL SCH ×4 (09:26→21:32)
[2017-11-26] MEDS: SERTRALINE 50 MG TABLET PO SCH ×2 (09:26→21:32)
[2017-11-26] MEDS: CARVEDILOL 6.25 MG TABLET PO SCH ×2 (09:26→16:57)
[2017-11-26] MEDS ORDERED: traZODone 50 MG TABLET PO SCH (09:40)
[2017-11-26] MEDS ORDERED: METOCLOPRAMIDE 10 MG/2 ML VIAL IV PRN (11:14)
[2017-11-26] MEDS: PROPOFOL 1,000 MG/100 ML BOTTLE IV SCH (12:34)
[2017-11-26] MEDS: methylPREDNISolone SOD SUC 40 MG/1 ML VIAL IV SCH ×2 (12:41→21:32)
[2017-11-26] MEDS: HYDROmorphone 2 MG/1 ML VIAL IV PRN (14:11)
[2017-11-27] MEDS: ALBUTEROL/IPRATROPIUM 3 ML NEB RESP TX SCH ×4 (01:22→19:58)
[2017-11-27] MEDS: HALOPERIDOL 5 MG TABLET PO SCH ×4 (03:59→20:21)
[2017-11-27 04:23] LABS: ABG Base Excess 3.4 MMOL/L (-2.5-2.5); ABG HCO3 27.5 MMOL/L (20-26); ABG PCO2 39.6 MM HG (35-48); ABG PH 7.459 (7.35-7.45); ABG PO2 209.8 MM HG (80-95); ABG TCO2 28.7 MMOL/L (23-27)
[2017-11-27] MEDS: HYDROmorphone 2 MG/1 ML VIAL IV PRN ×2 (04:50→22:16)
[2017-11-27] MEDS: BUDESONIDE 0.5 MG/2 ML NEB RESP TX SCH ×2 (07:55→19:58)
[2017-11-27] MEDS: NICOTINE 21 MG/24 HR PATCH TRANSDERM SCH (08:57)
[2017-11-27] MEDS: CARVEDILOL 6.25 MG TABLET PO SCH ×2 (08:57→16:26)
[2017-11-27] MEDS: SERTRALINE 50 MG TABLET PO SCH ×2 (08:57→20:21)
[2017-11-27] MEDS: amLODIPine 10 MG TABLET PEG SCH (08:57)
[2017-11-27] MEDS: ENOXAPARIN 40 MG/0.4 ML SYRINGE SUBCUT SCH (08:59)
[2017-11-27] MEDS: methylPREDNISolone SOD SUC 40 MG/1 ML VIAL IV SCH ×2 (08:59→21:14)
[2017-11-27] MEDS: NYSTATIN 500,000 UNIT/5 ML UDCUP SWISH/SWAL SCH ×4 (08:59→20:19)
[2017-11-27] MEDS: FAMOTIDINE 8 MG/ML 50 ML/BOTTLE PO SCH ×2 (09:02→20:23)
[2017-11-27] MEDS: ZINC OXIDE PASTE 113 GM TUBE TOP SCH ×2 (09:02→20:22)
[2017-11-27] MEDS: PROPOFOL 1,000 MG/100 ML BOTTLE IV SCH (12:43)
[2017-11-27 13:40] LABS: Hepatitis A Ab IgM Quant 0.06 Index; Hepatitis A Ab IgM Result Negative (Negative); Hepatitis B Core IgM Quant 0.06 Index; Hepatitis B Core IgM Result Negative (Negative); Hepatitis B Surface Ag Quant < 0.10 Index; Hepatitis B Surface Ag Result Negative (Negative); Hepatitis C Virus Ab Quant 0.14 Index; Hepatitis C Virus Ab Result Negative (Negative)
[2017-11-27] MEDS: ONDANSETRON 4 MG/2 ML VIAL IV PRN (19:11)
[2017-11-27] MEDS: LOSARTAN 50 MG TABLET PO SCH (20:22)
[2017-11-28] MEDS: ALBUTEROL/IPRATROPIUM 3 ML NEB RESP TX SCH ×4 (00:34→20:26)
[2017-11-28] MEDS: HALOPERIDOL 5 MG TABLET PO SCH ×4 (02:57→20:20)
[2017-11-28] MEDS: diphenhydrAMINE 50 MG/1 ML VIAL IV PRN ×2 (03:15→10:56)
[2017-11-28 04:07] LABS: Allen Test Positive
[2017-11-28 04:11] LABS: ABG Base Excess 4.2 MMOL/L (-2.5-2.5); ABG HCO3 28.2 MMOL/L (20-26); ABG Oxygen Saturation 99.8 % (95-100); ABG PCO2 45.2 MM HG (35-48); ABG TCO2 26.2 MMOL/L (23-27)
[2017-11-28 05:29] LABS: Prealbumin 33.6 MG/DL (20-40)
[2017-11-28 05:37] LABS: Albumin 2.9 G/DL (3.4-5.0); Bilirubin,Direct 0.17 MG/DL (0.0-0.20); Bilirubin,Indirect 0.2 MG/DL (0.0-1.0); Bilirubin,Total 0.4 MG/DL (0.2-1.0); Total Protein 5.9 G/DL (6.4-8.3)
[2017-11-28] MEDS: BUDESONIDE 0.5 MG/2 ML NEB RESP TX SCH ×2 (07:45→20:26)
[2017-11-28] MEDS: methylPREDNISolone SOD SUC 40 MG/1 ML VIAL IV SCH ×3 (08:12→20:42)
[2017-11-28] MEDS: SERTRALINE 50 MG TABLET PO SCH ×2 (08:12→20:19)
[2017-11-28] MEDS: LOSARTAN 50 MG TABLET PO SCH ×2 (08:12→20:19)
[2017-11-28] MEDS: CARVEDILOL 6.25 MG TABLET PO SCH (08:13)
[2017-11-28] MEDS: ENOXAPARIN 40 MG/0.4 ML SYRINGE SUBCUT SCH (08:13)
[2017-11-28] MEDS: NYSTATIN 500,000 UNIT/5 ML UDCUP SWISH/SWAL SCH ×4 (08:13→20:19)
[2017-11-28] MEDS: NICOTINE 21 MG/24 HR PATCH TRANSDERM SCH (08:13)
[2017-11-28] MEDS: FAMOTIDINE 8 MG/ML 50 ML/BOTTLE PO SCH ×2 (08:14→20:28)
[2017-11-28] MEDS: ZINC OXIDE PASTE 113 GM TUBE TOP SCH ×2 (08:14→20:19)
[2017-11-28] MEDS ORDERED: SODIUM CHLORIDE 0.9% 500 ML IV ONE (08:37)
[2017-11-28] MEDS: SODIUM CHLORIDE 0.45% 1,000 ML IV SCH ×3 (09:48→20:42)
[2017-11-28] MEDS: PROPOFOL 1,000 MG/100 ML BOTTLE IV SCH (12:59)
[2017-11-28] MEDS: CARVEDILOL 12.5 MG TABLET PO SCH (17:01)
[2017-11-28] MEDS: HYDROmorphone 2 MG/1 ML VIAL IV PRN (20:18)
[2017-11-28] MEDS: ZALEPLON 5 MG CAPSULE PO PRN (20:19)
[2017-11-29] MEDS: ALBUTEROL/IPRATROPIUM 3 ML NEB RESP TX SCH ×4 (02:37→18:05)
[2017-11-29] MEDS: HALOPERIDOL 5 MG TABLET PO SCH ×4 (03:00→21:15)
[2017-11-29 03:39] LABS: ABG Base Excess 2.5 MMOL/L (-2.5-2.5); ABG HCO3 26.6 MMOL/L (20-26); ABG Oxygen Saturation 96.7 % (95-100); ABG PCO2 45.4 MM HG (35-48); ABG PH 7.395 (7.35-7.45); ABG PO2 83.4 MM HG (80-95)
[2017-11-29 04:28] LABS: Basophils % 0.8 % (0.0-0.8); Eosinophils # 0.1 10*3/uL (0.0-0.87); Eosinophils % 2.6 % (0.00-10.9); Hemoglobin 10.1 GM/DL (12.0-16.0); Immature Granulocytes % 0.6 %; Immature Granulocytes Absolute 0.03 #; Lymphocytes # 1.2 10*3/uL (1.4-4.0); Lymphocytes % 23.8 % (21.3-54.2); Mean Corpuscular HGB Conc 32.6 GM/DL (32-36); Mean Corpuscular Hemoglobin 32 PG (27-34); Mean Corpuscular Volume 97.5 FL (87-102); Mean Platelet Volume 9.9 FL (9.6-12.0); Monocytes # 0.6 10*3/uL (0.11-0.8); Monocytes % 11.2 % (1.7-12.7); Platelet Count 288 T/CUMM (130-400); Red Blood Count 3.18 MC/CUMM (3.8-5.5); Red Cell Distribution Width 13.1 % (9.3-17.3); White Blood Count 4.9 T/CUMM (4-12)
[2017-11-29 05:05] LABS: Calcium 8.2 MG/DL (8.5-10.1); Osmolality,Calculated 275.5 MOS/KG (273-304); Potassium 3.4 MMOL/L (3.5-5.1)
[2017-11-29] MEDS: SODIUM CHLORIDE 0.45% 1,000 ML IV SCH ×3 (05:22→17:20)
[2017-11-29 05:42] LABS: Albumin 2.6 G/DL (3.4-5.0); Bilirubin,Direct 0.2 MG/DL (0.0-0.20); Bilirubin,Indirect 0.2 MG/DL (0.0-1.0); Bilirubin,Total 0.4 MG/DL (0.2-1.0); Total Protein 5.3 G/DL (6.4-8.3)
[2017-11-29] MEDS: POTASSIUM CHLORIDE 20 MEQ/15 ML UDCUP PER TUBE PRN ×3 (06:07→15:04)
[2017-11-29] MEDS: BUDESONIDE 0.5 MG/2 ML NEB RESP TX SCH ×2 (07:48→18:05)
[2017-11-29] MEDS: methylPREDNISolone SOD SUC 40 MG/1 ML VIAL IV SCH ×2 (08:46→21:15)
[2017-11-29] MEDS: ENOXAPARIN 40 MG/0.4 ML SYRINGE SUBCUT SCH (08:47)
[2017-11-29] MEDS: NYSTATIN 500,000 UNIT/5 ML UDCUP SWISH/SWAL SCH ×5 (08:47→21:39)
[2017-11-29] MEDS: CARVEDILOL 12.5 MG TABLET PO SCH (08:47)
[2017-11-29] MEDS: LOSARTAN 50 MG TABLET PO SCH ×2 (08:47→21:15)
[2017-11-29] MEDS: SERTRALINE 50 MG TABLET PO SCH ×2 (08:47→21:15)
[2017-11-29] MEDS: NICOTINE 21 MG/24 HR PATCH TRANSDERM SCH (08:47)
[2017-11-29] MEDS: FAMOTIDINE 8 MG/ML 50 ML/BOTTLE PO SCH ×2 (08:48→21:16)
[2017-11-29] MEDS: ZINC OXIDE PASTE 113 GM TUBE TOP SCH ×2 (08:50→21:39)
[2017-11-29] MEDS: ONDANSETRON 4 MG/2 ML VIAL IV PRN ×2 (12:50→21:23)
[2017-11-29] MEDS: PROPOFOL 1,000 MG/100 ML BOTTLE IV SCH (14:09)
[2017-11-29] MEDS: HYDROmorphone 2 MG/1 ML VIAL IV PRN (15:29)
[2017-11-29] MEDS ORDERED: POTASSIUM CHLORIDE 20 MEQ TABLET PO ONE (16:27)
[2017-11-29] MEDS: CARVEDILOL 25 MG TABLET PO SCH (17:45)
[2017-11-29] MEDS: diphenhydrAMINE 50 MG/1 ML VIAL IV PRN (22:17)
[2017-11-30] MEDS: ALBUTEROL/IPRATROPIUM 3 ML NEB RESP TX SCH ×4 (00:50→20:33)
[2017-11-30] MEDS: HYDROmorphone 2 MG/1 ML VIAL IV PRN ×3 (02:23→19:56)
[2017-11-30] MEDS: HALOPERIDOL 5 MG TABLET PO SCH ×4 (04:06→20:11)
[2017-11-30] MEDS: SODIUM CHLORIDE 0.45% 1,000 ML IV SCH (04:07)
[2017-11-30 06:06] LABS: Albumin 2.8 G/DL (3.4-5.0); Bilirubin,Direct 0.14 MG/DL (0.0-0.20); Bilirubin,Indirect 0.5 MG/DL (0.0-1.0); Bilirubin,Total 0.6 MG/DL (0.2-1.0); Total Protein 5.5 G/DL (6.4-8.3)
[2017-11-30] MEDS: BUDESONIDE 0.5 MG/2 ML NEB RESP TX SCH ×2 (07:11→20:33)
[2017-11-30] MEDS: LOSARTAN 50 MG TABLET PO SCH ×2 (08:50→20:06)
[2017-11-30] MEDS: CARVEDILOL 25 MG TABLET PO SCH ×2 (08:50→17:12)
[2017-11-30] MEDS: SERTRALINE 50 MG TABLET PO SCH ×2 (08:50→20:11)
[2017-11-30] MEDS: NICOTINE 21 MG/24 HR PATCH TRANSDERM SCH (08:51)
[2017-11-30] MEDS: ENOXAPARIN 40 MG/0.4 ML SYRINGE SUBCUT SCH (08:51)
[2017-11-30] MEDS: methylPREDNISolone SOD SUC 40 MG/1 ML VIAL IV SCH ×2 (08:51→20:39)
[2017-11-30] MEDS: ZINC OXIDE PASTE 113 GM TUBE TOP SCH (08:51)
[2017-11-30] MEDS: NYSTATIN 500,000 UNIT/5 ML UDCUP SWISH/SWAL SCH ×4 (08:51→20:06)
[2017-11-30] MEDS: POTASSIUM CHLORIDE 20 MEQ/15 ML UDCUP PER TUBE PRN ×3 (08:52→14:42)
[2017-11-30] MEDS: ONDANSETRON 4 MG/2 ML VIAL IV PRN ×3 (09:01→20:05)
[2017-11-30] MEDS: FAMOTIDINE 8 MG/ML 50 ML/BOTTLE PO SCH (09:35)
[2017-12-01] MEDS: FAMOTIDINE 8 MG/ML 50 ML/BOTTLE PO SCH ×3 (01:34→21:00)
[2017-12-01] MEDS: ZINC OXIDE PASTE 113 GM TUBE TOP SCH ×3 (01:36→20:58)
[2017-12-01] MEDS: ALBUTEROL/IPRATROPIUM 3 ML NEB RESP TX SCH ×4 (01:41→19:48)
[2017-12-01] MEDS: HALOPERIDOL 5 MG TABLET PO SCH ×4 (03:37→20:19)
[2017-12-01] MEDS: diphenhydrAMINE 50 MG/1 ML VIAL IV PRN (04:36)
[2017-12-01 07:20] LABS: Albumin 2.9 G/DL (3.4-5.0); Bilirubin,Direct 0.16 MG/DL (0.0-0.20); Bilirubin,Indirect 0.2 MG/DL (0.0-1.0); Bilirubin,Total 0.4 MG/DL (0.2-1.0); Total Protein 5.7 G/DL (6.4-8.3)
[2017-12-01] MEDS: BUDESONIDE 0.5 MG/2 ML NEB RESP TX SCH ×2 (07:20→19:48)
[2017-12-01] MEDS: methylPREDNISolone SOD SUC 40 MG/1 ML VIAL IV SCH ×2 (09:18→20:50)
[2017-12-01] MEDS: SERTRALINE 50 MG TABLET PO SCH ×2 (09:20→20:19)
[2017-12-01] MEDS: ENOXAPARIN 40 MG/0.4 ML SYRINGE SUBCUT SCH (09:20)
[2017-12-01] MEDS: NYSTATIN 500,000 UNIT/5 ML UDCUP SWISH/SWAL SCH ×4 (09:20→20:17)
[2017-12-01] MEDS: CARVEDILOL 25 MG TABLET PO SCH ×2 (09:20→18:07)
[2017-12-01] MEDS: LOSARTAN 50 MG TABLET PO SCH ×2 (09:20→20:19)
[2017-12-01] MEDS: NICOTINE 21 MG/24 HR PATCH TRANSDERM SCH (09:21)
[2017-12-01] MEDS: HYDROmorphone 2 MG/1 ML VIAL IV PRN ×2 (09:29→19:17)
[2017-12-01] MEDS ORDERED: TUBERCULIN SKIN TEST 0.1 ML SYRINGE INTRADERM ONE (11:21)
[2017-12-01] MEDS: ONDANSETRON 4 MG/2 ML VIAL IV PRN (19:21)
[2017-12-02] MEDS: ALBUTEROL/IPRATROPIUM 3 ML NEB RESP TX SCH ×4 (00:10→20:53)
[2017-12-02] MEDS: HALOPERIDOL 5 MG TABLET PO SCH ×4 (04:08→20:14)
[2017-12-02] MEDS: diphenhydrAMINE 50 MG/1 ML VIAL IV PRN ×2 (04:08→19:27)
[2017-12-02] MEDS: BUDESONIDE 0.5 MG/2 ML NEB RESP TX SCH ×2 (08:01→20:53)
[2017-12-02] MEDS: CARVEDILOL 25 MG TABLET PO SCH ×2 (08:52→16:46)
[2017-12-02] MEDS: methylPREDNISolone SOD SUC 40 MG/1 ML VIAL IV SCH ×2 (08:53→20:39)
[2017-12-02] MEDS: SERTRALINE 50 MG TABLET PO SCH ×2 (08:53→20:14)
[2017-12-02] MEDS: LOSARTAN 50 MG TABLET PO SCH ×2 (08:53→20:14)
[2017-12-02] MEDS: NICOTINE 21 MG/24 HR PATCH TRANSDERM SCH (08:55)
[2017-12-02] MEDS: FAMOTIDINE 8 MG/ML 50 ML/BOTTLE PO SCH ×2 (08:55→20:16)
[2017-12-02] MEDS: NYSTATIN 500,000 UNIT/5 ML UDCUP SWISH/SWAL SCH ×4 (08:55→20:14)
[2017-12-02] MEDS: ENOXAPARIN 40 MG/0.4 ML SYRINGE SUBCUT SCH (08:55)
[2017-12-02] MEDS: ZINC OXIDE PASTE 113 GM TUBE TOP SCH ×2 (08:55→20:15)
[2017-12-02] MEDS: ONDANSETRON 4 MG/2 ML VIAL IV PRN ×2 (08:58→16:46)
[2017-12-02] MEDS: DESITIN 4OZ/NYSTATIN 15 GRAM MIXTURE PASTE TOP SCH ×2 (13:53→20:18)
[2017-12-03] MEDS: ONDANSETRON 4 MG/2 ML VIAL IV PRN ×4 (00:40→15:03)
[2017-12-03] MEDS: diphenhydrAMINE 50 MG/1 ML VIAL IV PRN ×2 (01:31→18:31)
[2017-12-03] MEDS: HALOPERIDOL 5 MG TABLET PO SCH ×5 (01:31→20:40)
[2017-12-03] MEDS: ALBUTEROL/IPRATROPIUM 3 ML NEB RESP TX SCH ×4 (01:32→19:50)
[2017-12-03] MEDS: ZALEPLON 5 MG CAPSULE PO PRN (04:49)
[2017-12-03] MEDS: BUDESONIDE 0.5 MG/2 ML NEB RESP TX SCH ×2 (07:07→19:51)
[2017-12-03] MEDS: LOSARTAN 50 MG TABLET PO SCH ×3 (07:57→20:40)
[2017-12-03] MEDS: methylPREDNISolone SOD SUC 40 MG/1 ML VIAL IV SCH ×3 (07:58→20:46)
[2017-12-03] MEDS: CARVEDILOL 25 MG TABLET PO SCH ×3 (07:58→16:24)
[2017-12-03] MEDS: NICOTINE 21 MG/24 HR PATCH TRANSDERM SCH (07:59)
[2017-12-03] MEDS: NYSTATIN 500,000 UNIT/5 ML UDCUP SWISH/SWAL SCH ×4 (07:59→20:40)
[2017-12-03] MEDS: ENOXAPARIN 40 MG/0.4 ML SYRINGE SUBCUT SCH (07:59)
[2017-12-03] MEDS: ZINC OXIDE PASTE 113 GM TUBE TOP SCH ×2 (07:59→21:01)
[2017-12-03] MEDS: FAMOTIDINE 8 MG/ML 50 ML/BOTTLE PO SCH ×2 (08:00→21:01)
[2017-12-03] MEDS: DESITIN 4OZ/NYSTATIN 15 GRAM MIXTURE PASTE TOP SCH ×2 (08:00→20:40)
[2017-12-03] MEDS: SERTRALINE 50 MG TABLET PO SCH ×2 (08:00→20:40)
[2017-12-04] MEDS: diphenhydrAMINE 50 MG/1 ML VIAL IV PRN ×2 (00:39→06:40)
[2017-12-04] MEDS: ONDANSETRON 4 MG/2 ML VIAL IV PRN ×3 (00:45→10:44)
[2017-12-04] MEDS: ALBUTEROL/IPRATROPIUM 3 ML NEB RESP TX SCH ×3 (01:28→13:05)
[2017-12-04] MEDS: HALOPERIDOL 5 MG TABLET PO SCH ×2 (04:11→10:31)
[2017-12-04] MEDS: BUDESONIDE 0.5 MG/2 ML NEB RESP TX SCH (07:22)
[2017-12-04] MEDS: CARVEDILOL 25 MG TABLET PO SCH (10:30)
[2017-12-04] MEDS: SERTRALINE 50 MG TABLET PO SCH (10:31)
[2017-12-04] MEDS: LOSARTAN 50 MG TABLET PO SCH (10:31)
[2017-12-04] MEDS: ENOXAPARIN 40 MG/0.4 ML SYRINGE SUBCUT SCH (10:31)
[2017-12-04] MEDS: NICOTINE 21 MG/24 HR PATCH TRANSDERM SCH (10:32)
[2017-12-04] MEDS: NYSTATIN 500,000 UNIT/5 ML UDCUP SWISH/SWAL SCH ×2 (10:32→13:28)
[2017-12-04] MEDS: DESITIN 4OZ/NYSTATIN 15 GRAM MIXTURE PASTE TOP SCH (10:33)
[2017-12-04] MEDS: FAMOTIDINE 8 MG/ML 50 ML/BOTTLE PO SCH (10:33)
[2017-12-04] MEDS: methylPREDNISolone SOD SUC 40 MG/1 ML VIAL IV SCH (10:37)
[2017-12-04 12:26] LABS: Apearance,Urine CLOUDY (Clear); Bilirubin,Urine Negative (Negative); Blood, Urine Negative (Negative); Glucose,Urine (UA) Negative (Negative); Ketones,Urine Negative (Negative); Mucus,Urine Occasional /LPF (Occasional); Nitrite,Urine Negative (Negative); Protein,Urine Negative; Squamous Epithelial Cell,Urine Few /HPF (0-10); Urine Color Yellow (Yellow); Urine Specific Gravity 1.009 (1.001-1.035); Urine Urobilinogen < 2.0 EU/DL (0.2-1.0); WBC,Urine 5 /HPF (0-6)
[2017-12-04 12:29] VITALS: BP 106/72
== END 2017-12-04 15:25 | DRG 4 ==
LOC: N.ED 03:31 → SUPCPDRO 05:34 → SUATTDRO 05:34 → N.EDINP 05:41 → N.CC 06:04 → N.5E 11-30 18:45
PROVIDERS: ADMIT Hospitalist; ATTEND Internal Medicine Infectious Disease
PROC: [UNRECOGNIZED PROCEDURE] (2017-11-09 10:20)
PROC: EGDWPEG (ICD-10-PCS; 2017-11-16 13:05)